=== PATIENT | male | born 1960 | race Caucasian/White ===

== ENCOUNTER 2023-10-19 10:24 | Outpatient (AMB) | payer MEDICARE, BC, SELFPAY ==
--- NOTE | 2023-10-19 09:47 | A.OFFPC_ITS ---
Vital Signs 10/19/23 10:30 Height 5 ft 6.5 in Weight 240 lb BMI 38.2 BP 136/62 Blood Pressure Location Lt brachial Position Sitting Respiration 12 Pulse 87 Pulse Source Pulse Oximeter Pulse Oximetry (%) 95 Oxygen Delivery Method Room Air Intake Visit Reasons: Est Care/ [facility] Discharge Intake Note: Patient is here to establish care- moving from [facility] to [facility]. Patient notes he would like provider to know he was in the hospital for sepsis, Monday-patient urinated and it appeared to be blood- with what looked like clots, Monday- nothing, today when urinating patient reports less amount of blood and clotting. Patients spouse reports while in the hospital patient had abnormal EKG. Patients spouse also notes patient is increasingly forgetful. Patient reports while bending down he feels right sided chest pain with what feels like stitches trying to rip apart. Patient is taking a multivitamin, vitamin e- 400mg, vitamin d3 without calcium, Breo, clobetasol- 0.05% QD Polymerization Helper Required: No Accompanied by: Spouse Allergies No Known Allergies Allergy (Verified 10/19/23 10:39) Medication List - Last Reconciled 10/19/23 by Sasha Hawkins MD aspirin 81 mg PO DAILY atorvastatin 80 mg PO DAILY baclofen 5 mg PO TID betamethasone dipropionate 0.05% 1 appl topical BID PRN dulaglutide (Trulicity) mg subcut esomeprazole magnesium 40 mg PO BID dmitswdxtyu-ijholrliv-vdphvzap 100-62.5-25 mcg (Trelegy Ellipta) 1 ea inhalation DAILY folic acid PO gabapentin 300 mg PO TID glipizide ER 10 mg PO DAILY isosorbide mononitrate ER 30 mg PO DAILY lisinopril 40 mg PO DAILY methotrexate sodium mg PO metoprolol succinate ER 100 mg PO DAILY pioglitazone 45 mg PO DAILY prednisone mg PO sumatriptan succinate 100 mg PO DAILY tamsulosin 0.4 mg PO DAILY zolpidem 10 mg PO BEDTIME PRN Tobacco use date assessed: 10/19/23 Fall risk assessment: 1 Fall in past year Last assessed Fall Risk: 10/19/23 Dental Screening Dental Screen Date: 10/19/23 Did you have a dental visit in the last 12 months?: No Did you have a dental problem in the last 6 months where you did not have access to dental care?: No Was dental information given to patient?: Patient has dentist HPI HPI Comments History of Present Illness Details 62 year old male with a past medical his tory of sarcoidosis, ÓSCAR, COPD, CAD, prostate cancer and diabetes presenting for hospital follow up. Transfer from [facility] Hospitalized October 01- for sepsis secondary to UTI. He was treated with 3 day of IV abx and completed 4 additional days at home. He had recurrent gross hematuria 2 days ago and some speckling of blood yesterday. Denies fevers, dysuria CV: Follows with cardiology. History of abnormal nuclear stress-ST changes no meeting classic ischemic criteria but small reversible perfusion defect on nuclear. Performed for intermittent chest pain.Normal echo. Has held off on catheterization Msk: Chronic low back pain. Currently on tramadol and baclofen. Had controlled agreement. Gabapentin caused drowsiness. Has had PT in past and couldn't tolerate. Xray with mild arthritic changes, disc height loss, right AVN-hip. Present on MRI pelvis since 2019. Walks with cane. Had MRI Migraines 5-6/month. Last a few hours. Intermittent FMLA Diabetes: Controlled. On actos, trulicity and glipizide. Follows with optho. Pulmonary: Follows with [facility]. Moderate to severe COPD. Sarcoidosis treated with prednisone and MTX with good response. ÓSCAR on CPAP. Prostate Cancer: Azeem Post. On active surveillance. PSA stable. MRI last year Insomnia: On zolpidem. Preventive December 27, 2021-colonoscopy @ [facility]. [facility] Medical History (Updated 10/19/23 @ 11:48 by Sasha Hawkins MD) Insomnia Type 2 diabetes mellitus Sleep apnea Severe obesity Sarcoidosis of lung Rib pain Prostate cancer Pneumothorax, post biopsy Migraine Low back pain Hypertension High cholesterol Dyspnea COPD, severe Claustrophobia Chronic kidney disease, stage 3 Surgical History (Updated 10/19/23 @ 08:33 by Shanice Dutta CMA) History of appendectomy History of right knee surgery History of colonoscopy History of prostate biopsy Family History (Updated 10/19/23 @ 10:48 by Shanice Dutta CMA) Mother Hypertension FHx: uterine cancer Brother Prostate cancer Father Prostate cancer Social History (Updated 10/19/23 @ 10:50 by Shanice Dtuta CMA) Household Members: Spouse Housing: House Are you a primary customer care manager to a significant other at home: No Do you presently have visiting nurse or other home services: No Alcohol intake: former Comment: 1-2 times per week Patient Tobacco Use Status: Former Tobacco user Cigarette Packs Per Day: 1.5 Years Smoked: 10 e-Cigarette/Vaping Use: Never Used Substance Use Type: Amphetamines service: No Current occupational status: employed Current occupation: [employer] Sexual orientation: Straight/Heterosexual Gender identity: Male Cognitive needs: Yes Hearing needs: Yes Vision needs: Yes (wears glasses) Questionnaire PHQ-9 Over the last 2 weeks, how often have you been bothered by any of the following problems? 1. Little interest or pleasure in doing things: not at all 2. Feeling down, depressed, or hopeless: not at all 3. Trouble falling or staying asleep, or sleeping too much: not at all 4. Feeling tired or having little energy: not at all 5. Poor appetite or overeating: not at all 6. Feeling bad about yourself - or that you are a failure or have let yourself or your family down: not at all 7. Trouble concentrating on things, such as reading the newspaper or watching television: not at all 8. Moving or speaking so slowly that other people could have noticed. Or the opposite - being so fidgety or restless that you have been moving around a lot more than usual: not at all 9. Thoughts that you would be better off or of hurting yourself in some way: not at all Total score: 0 Depression Screening Interpretation: Negative Depression Screening Done: Yes 62529 - PHQ-9 Billing: Yes Source: Developed by Drs. Aleksander Marlow, Kiki Cooper, Naeem Anderson and colleagues, with an educational emily from [employer]. Thrive Questionnaire Date Thrive assessed: 10/19/23 I am a: Patient What is your living situation today?: I have a steady place to live Within the past 12 months, did the food you bought not last and you didn't have the money to get more?: Never true Within the past 12 months, did you worry whether your food would run out before you got money to buy more?: Never true Do you have trouble paying for medicines?: No Do you have trouble getting transportation to medical appointments?: No Do you have trouble paying your heating and electricity bill?: No Do you have trouble taking care of your child, family member or friend?: No Do you have trouble with day-to-day activities such as bathing, preparing meals, shopping, managing finances, etc.?: No Are you currently unemployed and looking for a job?: No Are you interested in more education?: I choose not to answer this question Please select the resources that you would like help with: None Currently or been in a relationship where the following occur: no concerns reported THRIVE Score: 0 AUDIT C Alcohol Use Questionnaire (AUDIT-C) 1. How often do you have a drink containing alcohol?: Never 3. How often do you have six or more drinks on one occasion?: Never Total Score: 0 BARRON-7 AMB Questionnaire BARRON-7 Date BARRON - 7 assessed: 10/19/23 Feeling nervous, anxious, or on edge: 0 = Not at all Not being able to stop or control worryin = Not at all Worrying too much about different things: 0 = Not at all Trouble relaxin = Not at all Being so restless that it is hard to sit still: 0 = Not at all Becoming easily annoyed or irritable: 0 = Not at all Feeling afraid as if something awful might happen: 0 = Not at all Total BARRON-7 score (0-4 normal; 5-9 mild; 10-14 moderate; 15-21 severe): 0 Source: Developed by Drs. Aleksander Marlow, Kiki Cooper, Naeem Anderson and colleagues, with an educational emily from [employer]. BARRON-7 Assessment Billing BARRON-7 Assessment Tool: BARRON-7 Assessment 82248 Review of Systems Const Details: ROS CONSTITUTIONAL: Denies weight loss, fever and chills. HEENT: Denies changes in vision and hearing. RESPIRATORY: Denies SOB and cough. CV: Denies palpitations and CP GI: Denies abdominal pain, nausea, vomiting and diarrhea. : Denies dysuria and urinary frequency. MSK: Denies myalgia and joint pain. SKIN: Denies rash and pruritus. NEUROLOGICAL: Denies headache and syncope. PSYCHIATRIC: Denies recent changes in mood. Denies anxiety and depression. Physical exam (Primary Care) Vital Signs: Last Vital Signs Pulse 87 10/19/23 10:30 Resp 12 10/19/23 10:30 BP 136/62 10/19/23 10:30 Pulse Ox 95 10/19/23 10:30 Oxygen Delivery Method Room Air 10/19/23 10:30 BMI result Body Mass Index 38.2 Tobacco/Smoking Status: Tobacco use Status Tobacco use date assessed 10/19/23 10/19/23 10:52 Patient Tobacco Use Status Former Tobacco user 10/19/23 10:50 e-Cigarette/Vaping Use Never Used 10/19/23 10:50 PHQ-9: PHQ-9 Score PHQ-9: Total score 0 10/19/23 11:50 Depression Screening Interpretation: Negative Thrive Assessment: Date of Thrive Assessment Date Thrive assessed 10/19/23 10/19/23 10:52 Currently or been in a relationship where the following occur: no concerns reported Const Other: PHYSICAL EXAM: GENERAL: Alert and oriented x 3. No acute distress. Well-nourished. EYES: EOMI. Anicteric. HENT: Moist mucous membranes. No scleral icterus. No cervical lymphadenopathy. LUNGS: Clear to auscultation bilaterally. No accessory muscle use. CARDIOVASCULAR: Regular rate and rhythm. No murmur. No JVD. ABDOMEN: Soft, non-tender and non-distended. No palpable masses. EXTREMITIES: No edema. Non-tender. SKIN: No rashes or lesions. Warm. NEUROLOGIC: No focal neurological deficits. CN II-XII grossly intact, but not individually tested. PSYCHIATRIC: Cooperative. Appropriate mood and affect. Assessment and Plan Assessment & Plan (1) Hospital discharge follow-up: Code(s): Z09 - Encounter for follow-up examination after completed treatment for conditions other than malignant neoplasm Plan: patient seen for hospital follow up Hospitalization reviewed. medications reconciled Continues to have some gross hematuria-has follow up scheduled with urology next week. cytology, ua and ucx ordered (2) Type 2 diabetes mellitus: Comment: well controlled, overdue for labs. labs ordered. medications refilled. Code(s): E11.9 - Type 2 diabetes mellitus without complications Qualifiers: Chronic kidney disease stage: stage 3 (moderate) Chronic kidney disease stage 3 subtype: unspecified whether 3a or 3b Diabetes mellitus complication detail: with chronic kidney disease Diabetes mellitus complication status: with kidney complications Diabetes mellitus predatory animal exterminator insulin use: without [place] [facility] use Qualified Code(s): E11.22 - Type 2 diabetes mellitus with diabetic chronic kidney disease; N18.30 - Chronic kidney disease, stage 3 unspecified (3) Type 2 diabetes mellitus: Comment: well controlled, overdue for labs. labs ordered. medications refilled. Code(s): E11.9 - Type 2 diabetes mellitus without complications Qualifiers: Chronic kidney disease stage: stage 3 (moderate) Chronic kidney disease stage 3 subtype: unspecified whether 3a or 3b Diabetes mellitus complication detail: with chronic kidney disease Diabetes mellitus complication status: with kidney complications Diabetes mellitus [place] [facility] insulin use: without [place] use Qualified Code(s): E11.22 - Type 2 diabetes mellitus with diabetic chronic kidney disease; N18.30 - Chronic kidney disease, stage 3 unspecified (4) Chronic kidney disease, stage 3: Code(s): N18.30 - Chronic kidney disease, stage 3 unspecified Qualifiers: Chronic kidney disease stage 3 subtype: unspecified whether 3a or 3b Q ualified Code(s): N18.30 - Chronic kidney disease, stage 3 unspecified (5) COPD, severe: Comment: continue pulmonary follow up. No active exacerbation Code(s): J44.9 - Chronic obstructive pulmonary disease, unspecified (6) Prostate cancer: Comment: active surveillance. psa has been stable. follow up scheduled Code(s): C61 - Malignant neoplasm of prostate (7) Sarcoidosis of lung: Code(s): D86.0 - Sarcoidosis of lung Orders: Orders AMB Urinalysis Auto Microscop. Today R31.9 - Hematuria, unspecified Urine Cytology Today R31.9 - Hematuria, unspecified Complete Blood Count Auto Diff Today E11.9 - Type 2 diabetes mellitus without complications Comprehensive Met. Panel Today E11.9 - Type 2 diabetes mellitus without complications Hemoglobin A1c Today E11.9 - Type 2 diabetes mellitus without complications Urine Culture Today R31.9 - Hematuria, unspecified Medications: New aspirin 81 mg PO DAILY 90 tabs 3RF atorvastatin 80 mg PO DAILY 90 tabs 3RF baclofen 5 mg PO TID 90 tabs 3RF rpefvbnsyeo-gmnxkunvh-dsbnwxzl 100-62.5-25 mcg (Trelegy Ellipta) 1 ea inhalation DAILY 3 ea 3RF gabapentin 300 mg PO TID 90 days 270 caps 3RF glipizide ER 10 mg PO DAILY 90 days 90 tabs 3RF isosorbide mononitrate ER 30 mg PO DAILY 90 days 90 tabs 3RF metoprolol succinate ER 100 mg PO DAILY 90 days 90 tabs 3RF pioglitazone 45 mg PO DAILY 90 days 90 tabs 3RF sumatriptan succinate 100 mg PO DAILY 90 days 30 tabs 3RF betamethasone dipropionate 0.05% 1 appl topical BID 90 days PRN 45 grams 3RF rash dulaglutide (Trulicity) 1.5 mg (0.25 mL) subcut QWEEK 12 weeks 3 mL 3RF esomeprazole magnesium 40 mg PO BID 90 caps 3RF folic acid 1 mg PO DAILY 90 days 90 tabs 3RF lisinopril 40 mg PO DAILY 90 days 90 tabs 3RF methotrexate sodium 5 mg (2 x 2.5 mg) PO QWEEK 12 weeks 24 tabs 3RF prednisone 10 mg PO Q OTHER DAY 90 days 45 tabs 3RF tamsulosin 0.4 mg PO DAILY 90 days 90 caps 3RF zolpidem 10 mg PO BEDTIME 30 days PRN 30 tabs 0RF insomnia Review Flu Vaccine not done: patient reason Coding Level of Care Code Est Pt Level 5 (13512) Diagnoses Hospital discharge follow-up Z09 Type 2 diabetes mellitus with stage 3 chronic kidney disease, without long-term current use of insulin, unspecified whether stage 3a or 3b CKD E11.22; N18.30 Chronic kidney disease stage: stage 3 (moderate) Chronic kidney disease stage 3 subtype: unspecified whether 3a or 3b Diabetes mellitus complication detail: with chronic kidney disease Diabetes mellitus complication status: with kidney complications Diabetes mellitus predatory animal exterminator insulin use: without [place] use Stage 3 chronic kidney disease, unspecified whether stage 3a or 3b CKD N18.30 Chronic kidney disease stage 3 subtype: unspecified whether 3a or 3b COPD, severe J44.9 Prostate cancer C61 Sarcoidosis of lung D86.0 Additional Codes BARRON-7 Assessment Billing - BARRON-7 Assessment Tool: BARRON-7 Assessment [id number] ( [id number]) Time Spent (min) 46
[2023-10-19 10:30] VITALS: BP 136/62; PULSE 87; RESP 12; O2SAT 95; BMI 38.2
== END 2023-10-19 11:39 | disposition home or self-care (01) ==
PROVIDERS: PCP Internal Medicine; Visit Provider Internal Medicine
DX: E11.22 Type 2 diabetes mellitus with diabetic chronic kidney disease (principal); N18.30 Chronic kidney disease, stage 3 unspecified; J44.9 Chronic obstructive pulmonary disease, unspecified; C61 Malignant neoplasm of prostate; D86.0 Sarcoidosis of lung; Z09 Encounter for follow-up examination after completed treatment for conditions other than malignant neoplasm
CPT/HCPCS: 99215

== ENCOUNTER 2023-10-19 11:40 | Outpatient (REF) | payer MEDICARE, BC, SELFPAY ==
[2023-10-19 14:24] LABS: MANUAL DIFF FLAG NO
[2023-10-19 14:31] LABS: Urine Cytology See Pathology rpt
[2023-10-19 14:31] LABS: Basophils Percent Auto 0.3 % (0-2); Eosinophils Absolute Auto 0.1 X10*3/uL (0.0-0.4); Hematocrit 42.4 % (42.0-52.0); Hemoglobin 13.5 g/dl (14.0-18.0); Imm Gran Abs Auto 0.04 X10*3/uL (0.00-0.03); Imm Gran Pct Auto 0.3 % (0.0-0.4); Lymphocytes Percent Auto 7.2 % (20-40); Mean Corpuscular HGB Conc 31.8 g/dl (31.0-36.0); Mean Corpuscular Volume 87.8 fL (80.0-98.0); Mean Platelet Volume 10.1 fL (9.4-12.4); Monocytes Absolute Auto 1.1 X10*3/uL (0.1-1.2); Monocytes Percent Auto 8.4 % (2-11); Neutrophils Absolute Auto 11.1 x10*3/uL (2.0-8.3); Neutrophils Percent Auto 82.8 % (45-73); Platelet Count 235 X10*3/uL (160-400); Red Blood Count 4.83 X10*6/uL (4.60-5.80); Red Cell Distribution Width 16.2 % (11.0-16.0); White Blood Count 13.4 X10*3/uL (4.8-10.8)
[2023-10-19 15:02] LABS: Alanine Aminotransferase 29 U/L (0-40); Albumin Level 3.7 g/dL (3.5-5.0); Alkaline Phosphatase 93 U/L (39-117); Anion Gap 8 (12-20); Aspartate Amino Transferase 22 U/L (5-37); Bilirubin Total 0.7 mg/dL (0.0-1.0); Blood Urea Nitrogen 18 mg/dL (9-16); Calcium 10.7 mg/dL (8.4-10.2); Carbon Dioxide 34 mmol/L (22-29); Chloride 105 mmol/L (96-108); Estimated Glomerular Filt Rate 53; Glucose Random 97 mg/dL (60-115); Potassium 4.2 mmol/L (3.3-5.1); Sodium 143 mmol/L (135-145); Total Protein 6.6 g/dL (6.5-8.0)
[2023-10-19 16:07] LABS: Estimated Average Glucose 128 mg/dL; Hemoglobin A1c % 6.1 % (<6.0)
== END 2023-10-19 11:41 | disposition home or self-care (01) ==
LOC: HO.WFDLDS 11:40
PROVIDERS: Visit Provider Internal Medicine
DX: R31.9 Hematuria, unspecified (principal); E11.9 Type 2 diabetes mellitus without complications
CPT/HCPCS: 36415; 80053; 83036; 85025; 87086; 87088; 87186; 88112

== ENCOUNTER 2023-10-23 09:08 | Outpatient (REF) | payer MEDICARE, BC, SELFPAY ==
[2023-10-23 12:15] LABS: Prostate Specific Antigen 7.52 ng/mL (<0.05-4.0)
== END 2023-10-23 09:09 | disposition home or self-care (01) ==
LOC: HO.WFDLDS 09:08
PROVIDERS: Visit Provider Urology
DX: Z12.5 Encounter for screening for malignant neoplasm of prostate (principal); C61 Malignant neoplasm of prostate
CPT/HCPCS: 36415; 84153

== ENCOUNTER 2024-01-22 08:49 | Outpatient (AMB) | payer MEDICARE, BC, SELFPAY ==
--- NOTE | 2024-01-22 08:52 | A.OFFPC_ITS ---
Vital Signs 01/22/24 08:54 Height 5 ft 6.5 in Weight 243 lb BMI 38.6 BP 156/60 H Blood Pressure Location Rt brachial Position Sitting Respiration 13 Pulse 76 Pulse Source Pulse Oximeter Pulse Oximetry (%) 99 Oxygen Delivery Method Room Air Intake Visit Reasons: Physical Intake Note: Patient is here for his welcome to Medicare visit which is different from the annual visit. Patient reports he is taking trulicity and recently received a 30 days supply instead of a 90 day supply and would like to receive the 90 day supply. Lobster Fisherman Required: No Accompanied by: Self / Same As Patient Allergies No Known Allergies Allergy (Verified 01/22/24 08:58) Tobacco use date assessed: 10/19/23 Fall risk assessment: No Falls in past year Last assessed Fall Risk: 01/22/24 Dental Screening Dental Screen Date: 10/19/23 HPI HPI Comments History of Present Illness Details 62 year old male with a past medical his tory of sarcoidosis, ÓSCAR, COPD, CAD, prostate cancer and diabetes presenting for hospital follow up. [place] [facility] [place]- for sepsis secondary to UTI. He was treated with 3 day of IV abx and completed 4 additional days at home. He had recurrent gross hematuria 2 days ago and some speckling of blood yesterday. Denies fevers, dysuria CV: Follows with cardiology. History of abnormal nuclear stress-ST changes no meeting classic ischemic criteria but small reversible perfusion defect on nuclear. Performed for intermittent chest pain.Normal echo. Has held off on catheterization Msk: Chronic low back pain. Currently on tramadol and baclofen. Had controlled agreement. Gabapentin caused drowsiness. Has had PT in past and couldn't tolerate. Xray with mild arthritic changes, disc height loss, right AVN-hip. Present on MRI pelvis since 2019. Walks with cane. Had MRI Migraines 5-6/month. Last a few hours. Intermittent FMLA Diabetes: Controlled. On actos, trulicity and glipizide. Follows with optho. Pulmonary: Follows with [facility]. Moderate to severe COPD. Sarcoidosis treated with prednisone and MTX with good response. ÓSCAR on CPAP. Prostate Cancer: Azeem Post. On active surveillance. PSA stable. MRI last year Insomnia: On zolpidem. Preventive December 27, 2021-colonoscopy @ [facility]. [facility] Medical History (Updated 10/19/23 @ 11:48 by Sasha Hawkins MD) Insomnia Type 2 diabetes mellitus Sleep apnea Severe obesity Sarcoidosis of lung Rib pain Prostate cancer Pneumothorax, post biopsy Migraine Low back pain Hypertension High cholesterol Dyspnea COPD, severe Claustrophobia Chronic kidney disease, stage 3 Surgical History (Updated 10/19/23 @ 08:33 by Shanice Dutta CMA) History of appendectomy History of right knee surgery History of colonoscopy History of prostate biopsy Family History (Updated 10/19/23 @ 10:48 by Shanice Dutta CMA) Mother Hypertension FHx: uterine cancer Brother Prostate cancer Father Prostate cancer Social History (Updated 10/19/23 @ 10:50 by Shanice Dutta CMA) Household Members: Spouse Housing: House Are you a primary healthcare economics consultant to a significant other at home: No Do you presently have visiting nurse or other home services: No 75 years or older and lives alone: No Alcohol intake: former Comment: 1-2 times per week Patient Tobacco Use Status: Former Tobacco user Cigarette Packs Per Day: 1.5 Years Smoked: 10 Packs Per Year: 15 e-Cigarette/Vaping Use: Never Used Substance Use Type: Amphetamines service: No Current occupational status: employed Current occupation: [employer] Sexual orientation: Straight/Heterosexual Gender identity: Male Cognitive needs: Yes Hearing needs: Yes Vision needs: Yes (wears glasses) Questionnaire Thrive Questionnaire Date Thrive assessed: 10/19/23 BARRON-7 AMB Questionnaire BARRON-7 Date BARRON - 7 assessed: 10/19/23 Source: Developed by Drs. Aleksander Marlow, Kiki Cooper, Naeem Anderson and colleagues, with an educational emily from [employer]. Physical exam (Primary Care) Vital Signs: Last Vital Signs Pulse 76 01/22/24 08:54 Resp 13 01/22/24 08:54 BP 156/60 H 01/22/24 08:54 Pulse Ox 99 01/22/24 08:54 Oxygen Delivery Method Room Air 01/22/24 08:54 BMI result Body Mass Index 38.6 Tobacco/Smoking Status: Tobacco use Status Tobacco use date assessed 10/19/23 01/22/24 08:54 Patient Tobacco Use Status Former Tobacco user 01/22/24 08:54 e-Cigarette/Vaping Use Never Used 01/22/24 08:54 Thrive Assessment: Date of Thrive Assessment Date Thrive assessed 10/19/23 01/22/24 08:54 Coding
[2024-01-22 08:54] VITALS: BP 156/60; PULSE 76; RESP 13; O2SAT 99; BMI 38.6
--- NOTE | 2024-01-22 09:12 | A.OFFVIS_ITS ---
Intake Vital Signs 01/22/24 08:54 01/22/24 09:13 Height 5 ft 6.5 in Weight 243 lb BMI 38.6 38.6 BP 156/60 H Blood Pressure Location Rt brachial Position Sitting Respiration 13 Pulse 76 Pulse Source Pulse Oximeter Pulse Oximetry (%) 99 Oxygen Delivery Method Room Air Intake Visit Reasons: AWV Allergies No Known Allergies Allergy (Verified 01/22/24 08:58) Medication List - Last Reconciled 01/22/24 by Sasha Hawkins MD aspirin 81 mg PO DAILY atorvastatin 80 mg PO DAILY baclofen 5 mg PO TID betamethasone dipropionate 0.05% 1 appl topical BID PRN 90 days dulaglutide (Trulicity) 1.5 mg (0.25 mL) subcut QWEEK 12 weeks esomeprazole magnesium 40 mg PO BID cdkbvcvkrjy-bgodbupbl-fndimudt 100-62.5-25 mcg (Trelegy Ellipta) 1 ea inhalation DAILY folic acid 1 mg PO DAILY 90 days gabapentin 300 mg PO TID 90 days glipizide ER 10 mg PO DAILY 90 days isosorbide mononitrate ER 30 mg PO DAILY 90 days lisinopril 40 mg PO DAILY 90 days methotrexate sodium 5 mg (2 x 2.5 mg) PO QWEEK 12 weeks metoprolol succinate ER 100 mg PO DAILY 90 days pioglitazone 45 mg PO DAILY 90 days prednisone 10 mg PO Q OTHER DAY 90 days sumatriptan succinate 100 mg PO DAILY 90 days tamsulosin 0.4 mg PO DAILY 90 days zolpidem 10 mg PO BEDTIME PRN 30 days HPI HPI Comments History of Present Illness Details 62 year old male with a past medical his tory of sarcoidosis, ÓSCAR, COPD, CAD, prostate cancer and diabetes presenting MWV CV: Follows with cardiology. History of abnormal nuclear stress-ST changes no meeting classic ischemic criteria but small reversible perfusion defect on nuclear. Performed for intermittent chest pain.Normal echo. Has held off on catheterization Msk: Chronic low back pain. Currently on tramadol and baclofen. Had controlled agreement. Gabapentin caused drowsiness. Has had PT in past and couldn't tolerate. Xray with mild arthritic changes, disc height loss, right AVN-hip. Present on MRI pelvis since 2019. Walks with cane. Had MRI Migraines 5-6/month. Last a few hours. Intermittent FMLA Diabetes: Controlled. On actos, trulicity and glipizide. Follows with optho. Has not had trulicity for ~2 months until just received a one month supply recently Pulmonary: Follows with [facility]. Moderate to severe COPD. Sarcoidosis treated with prednisone and MTX with good response. ÓSCAR on CPAP. Prostate Cancer: [facility] with[facility]. On active surveillance. PSA stable. MRI last year. Hospitalized October 01- for sepsis secondary to UTI. He was treated w ith 3 day of IV abx and completed 4 additional days at home. He had recurrent gross hematuria 2 days ago and some speckling of blood yesterday. Denies fevers, dysuria Insomnia: On zolpidem. Preventive December 27, 2021-colonoscopy @ [facility]. ROS CONSTITUTIONAL: Denies weight loss, fever and chills. HEENT: Denies changes in vision and hearing. RESPIRATORY: Denies SOB and cough. CV: Denies palpitations and CP GI: Denies abdominal pain, nausea, vomiting and diarrhea. : Denies dysuria and urinary frequency. MSK: Denies new myalgia and joint pain. SKIN: Denies rash and pruritus. NEUROLOGICAL: Denies headache PSYCHIATRIC: Denies recent changes in mood. PHYSICAL EXAM: GENERAL: Alert and oriented x 3. NAD EYES: EOMI. Anicteric. HENT: Moist mucous membranes. No scleral icterus. No cervical lymphadenopathy. LUNGS: Clear to auscultation bilaterally. CARDIOVASCULAR: Regular rate and rhythm. No murmur. No JVD. ABDOMEN: Soft, non-tender +bs EXTREMITIES: No edema. Non-tender. SKIN: No rashes or lesions. Warm. NEUROLOGIC: No focal neurological deficits. CN II-XII grossly intact PSYCHIATRIC: Cooperative. Appropriate mood and affect [facility] Medical History (Updated 01/22/24 @ 10:07 by Sasha Hawkins MD) Insomnia Type 2 diabetes mellitus Sleep apnea Severe obesity Sarcoidosis of lung Rib pain Prostate cancer Pneumothorax, post biopsy Migraine Low back pain Hypertension High cholesterol Dyspnea COPD, severe Claustrophobia Chronic kidney disease, stage 3 Surgical History History of appendectomy History of right knee surgery History of colonoscopy History of prostate biopsy Family History Mother Hypertension FHx: uterine cancer Brother Prostate cancer Father Prostate cancer Social History Household Members: Spouse Housing: House Are you a primary foster care worker to a significant other at home: No Do you presently have visiting nurse or other home services: No Alcohol intake: former Comment: 1-2 times per week Patient Tobacco Use Status: Former Tobacco user Cigarette Packs Per Day: 1.5 Years Smoked: 10 e-Cigarette/Vaping Use: Never Used Substance Use Type: Amphetamines service: No Current occupational status: employed Current occupation: [employer] Sexual orientation: Straight/Heterosexual Gender identity: Male Cognitive needs: Yes Hearing needs: Yes Vision needs: Yes (wears glasses) Questionnaire Medicare Wellness Checkup What [age] 65-67 What gender do you identify with?: male During the past 4 weeks, how much have you been bothered by emotional problems such as feeling anxious, depressed, irritable, sad or downhearted, and blue?: not at all During the past 4 weeks, has your physical & emotional health limited your social activities with family, friends, neighbors, or groups?: not at all During the past 4 weeks, how much bodily pain have you generally had?: no pain During the past 4 weeks, was someone available to help you if you needed & wanted help?: yes, as much as I wanted During the past 4 weeks, what was the hardest physical activity you could do for at least 2 minutes?: light Can you get to places out of walking distance without help? (For eg., can you travel alone on buses, taxis or drive your car?): Yes Can you go shopping for groceries or clothes without someone's help?: Yes Can you prepare your own meals?: Yes Can you do your housework without help?: No Because of any health problems, do you need the help of another person with your personal care needs such as eating, bathing, dressing or getting around the house?: No Can you handle your own money without help?: Yes During the past 4 weeks, how would you rate your health in general?: good During the past 4 weeks how have things been going for you?: pretty well Are you having difficulties driving your car?: no Do you always fasten your seat belt when you are in a car?: yes, usually During past 4 weeks, have you been bothered by the following: never: Sexual problems?, Trouble eating well?, Teeth or denture problems? and Problems using the telephone?, sometimes: Tiredness or fatigue? and often: Falling or dizzy when standing up Have you fallen 2 or more times in the past year?: No Are you afraid of falling?: No Are you a smoker?: no During the past 4 weeks, how many drinks of wine, beer, or other alcoholic beverages did you have?: no alcohol at all Do you exercise for about 20 minutes 3 or more times a week?: no, I usually do not exercise this much Have you been given information to help with the following?: no: Hazards in your house that might hurt you? and no: Keeping track of your medications? How often do you have trouble taking medicines the way you have been told to take them?: I always take medicine as prescribed How confident are you that you can control & manage most of your health problems?: somewhat confident What is your race?: White Mini Mental State Exam (MMSE) Orientation What is the (year) (season) (date) (day) (month)?: year, season, date, day and month Where are we (state) (county) (town or city) (hospital) (floor)?: state, county, town or city, hospital/clinic and floor Registration Name of 3 unrelated objects clearly and slowly, then ask patient to repeat all 3 of them. (1st repeat determines score. Make sure they can repeat all three): object 1, object 2 and object 3 Attention & Calculation (CHOOSE ONE) Ask pt to begin with 100 & count backward by 7. Stop after 5 repeats. If pt cannot ask them to spell the word WORLD backward.: 93, 86, 79 and 65 Spell WORLD backwards (DLROW): 5 letters Recall Ask patient to repeat the 3 items from question #3.: object 1, object 2 and object 3 Language Show patient a wristwatch & ask what it is. Repeat for pencil.: watch and pencil Ask the patient to repeat the phrase 'No ifs, ands, or buts' after you.: correct Ask the patient to 'take a piece of paper with their right hand' 'fold paper in half' 'place paper on floor': take paper in right hand, fold paper in half and place paper on floor Print the sentence 'CLOSE YOUR EYES' on a piece. If patient actually closes eyes then score.: followed written direction Give patient a blank piece of paper & ask to write a sentence. Score if it contains a noun & verb.: sentence contains subject and verb Ask patient to copy figure of intersecting pentagons exactly. Score if all 10 angles & 2 intersects are included.: all 10 angles present & 2 are intersected Score Score: 34 Activity of Daily Living Bathing - sponge bath, tub bath or shower: receives no assistance (gets in/out by self, if usual bathing means Dressing - getting clothes from closets & drawers, including inner/outer garments & fasteners.: gets clothes & gets completely dressed without help Toileting - going to the 'toilet room' for urine/bowel elimination & cleaning self/arranging clothes: goes to toilet room, cleans self, arranges clothes without help Transfer: moves in & out of bed and chair without help (may use support object) Continence: controls urination/bowel movements completely by self Feeding: feeds self without help Total Score: 0 Information obtained from: patient Using telephone: independent Traveling: independent Shopping: independent Preparing meals: independent Housework: independent Taking medicine: independent Managing money: independent Physical Exam Vital Signs: Last Vital Signs Pulse 76 01/22/24 08:54 Resp 13 01/22/24 08:54 BP 156/60 H 01/22/24 08:54 Pulse Ox 99 01/22/24 08:54 Oxygen Delivery Method Room Air 01/22/24 08:54 BMI result Body Mass Index 38.6 Assessment & Plan Assessment & Plan (1) Medicare annual wellness visit, subsequent: Code(s): Z00.00 - Encounter for general adult medical examination without abnormal findings Plan: HRA reviewed. No problems identified (2) Leg cramps: Code(s): R25.2 - Cramp and spasm Plan: check labs (3) Type 2 diabetes mellitus: Comment: well controlled, overdue for labs. labs ordered. has been out of trulicity due to shortage Code(s): E11.9 - Type 2 diabetes mellitus without complications Qualifiers: Diabetes mellitus shelter insulin use: without shelter use Diabetes mellitus complication status: with kidney complications Diabetes mellitus complication detail: with chronic kidney disease Chronic kidney disease stage: stage 3 (moderate) Chronic kidney disease stage 3 subtype: unspecified whether 3a or 3b Qualified Code(s): E11.22 - Type 2 diabetes mellitus with diabetic chronic kidney disease; N18.30 - Chronic kidney disease, stage 3 unspecified (4) Sarcoidosis of lung: Code(s): D86.0 - Sarcoidosis of lung Plan: Chronic exertional dyspnea. Follws with pulm and cardiology (5) Prostate cancer: Comment: active surveillance. psa has been stable. follow up scheduled Code(s): C61 - Malignant neoplasm of prostate Plan: Continue follow up with urolgoy (6) COPD, severe: Comment: continue pulmonary follow up. No active exacerbation Code(s): J44.9 - Chronic obstructive pulmonary disease, unspecified Plan: continue pulm follow up (7) Chronic kidney disease, stage 3: Code(s): N18.30 - Chronic kidney disease, stage 3 unspecified Qualifiers: Chronic kidney disease stage 3 subtype: unspecified whether 3a or 3b Qualified Code(s): N18.30 - Chronic kidney disease, stage 3 unspecified Plan: stable Plan see above Return in 3 months for DM follow up Orders: Orders IRON PROFILE Today E11.22 - Type 2 diabetes mellitus with diabetic chronic kidney disease, N18.30 - Chronic kidney disease, stage 3 unspecified, R25.2 - Cramp and spasm Comprehensive Met. Panel Today E11.22 - Type 2 diabetes mellitus with diabetic chronic kidney disease, N18.30 - Chronic kidney disease, stage 3 unspecified, R25.2 - Cramp and spasm Hemoglobin A1c Today E11.22 - Type 2 diabetes mellitus with diabetic chronic kidney disease, N18.30 - Chronic kidney disease, stage 3 unspecified, R25.2 - Cramp and spasm Magnesium Today E11.22 - Type 2 diabetes mellitus with diabetic chronic kidney disease, N18.30 - Chronic kidney disease, stage 3 unspecified, R25.2 - Cramp and spasm Coding Level of Care Code Medicare Subsequent (G0439) Diagnoses Medicare annual wellness visit, subsequent Z00.00 Leg cramps R25.2 Type 2 diabetes mellitus with stage 3 chronic kidney disease, without long-term current use of insulin, unspecified whether stage 3a or 3b CKD E11.22; N18.30 Diabetes mellitus exterminator helper insulin use: without exterminator helper use Diabetes mellitus complication status: with kidney complications Diabetes mellitus complication detail: with chronic kidney disease Chronic kidney disease stage: stage 3 (moderate) Chronic kidney disease stage 3 subtype: unspecified whether 3a or 3b Sarcoidosis of lung D86.0 Prostate cancer C61 COPD, severe J44.9 Stage 3 chronic kidney disease, unspecified whether stage 3a or 3b CKD N18.30 Chronic kidney disease stage 3 subtype: unspecified whether 3a or 3b Comment modifier 25
[2024-01-22 09:13] VITALS: BMI 38.6
== END 2024-01-22 09:38 | disposition home or self-care (01) ==
PROVIDERS: PCP Internal Medicine; Visit Provider Internal Medicine
DX: E11.22 Type 2 diabetes mellitus with diabetic chronic kidney disease (principal); N18.30 Chronic kidney disease, stage 3 unspecified; D86.0 Sarcoidosis of lung; C61 Malignant neoplasm of prostate; J44.9 Chronic obstructive pulmonary disease, unspecified; R25.2 Cramp and spasm
CPT/HCPCS: 99214

== ENCOUNTER 2024-01-22 09:42 | Outpatient (REF) | payer MEDICARE, BC, SELFPAY ==
[2024-01-22 11:33] LABS: Estimated Average Glucose 131 mg/dL; Hemoglobin A1c % 6.2 % (<6.0)
[2024-01-22 11:43] LABS: Alanine Aminotransferase 27 U/L (0-40); Albumin Level 3.9 g/dL (3.5-5.0); Alkaline Phosphatase 87 U/L (39-117); Anion Gap 9 (12-20); Aspartate Amino Transferase 26 U/L (5-37); Bilirubin Total 0.6 mg/dL (0.0-1.0); Blood Urea Nitrogen 24 mg/dL (9-16); Calcium 10.5 mg/dL (8.4-10.2); Carbon Dioxide 30 mmol/L (22-29); Chloride 110 mmol/L (96-108); Estimated Glomerular Filt Rate 52; Glucose Random 74 mg/dL (60-115); Iron 61 mcg/dL (45-160); Magnesium 2.2 mg/dL (1.6-2.6); Percent Iron Saturation 20 % (15-50); Potassium 4.2 mmol/L (3.3-5.1); Sodium 145 mmol/L (135-145); Total Iron Binding Capacity 302 mcg/dL (228-428); Total Protein 6.7 g/dL (6.5-8.0); Unsaturated Iron Binding 241 ug/dL
== END 2024-01-22 09:43 | disposition home or self-care (01) ==
LOC: HO.WFDLDS 09:42
PROVIDERS: Visit Provider Internal Medicine
DX: E11.22 Type 2 diabetes mellitus with diabetic chronic kidney disease (principal); N18.30 Chronic kidney disease, stage 3 unspecified; R25.2 Cramp and spasm
CPT/HCPCS: 36415; 80053; 83036; 83540; 83735

== ENCOUNTER 2024-04-29 09:51 | Outpatient (AMB) | payer MEDICARE, BC, SELFPAY ==
--- NOTE | 2024-04-29 10:16 | A.OFFPC_ITS ---
Vital Signs 04/29/24 10:17 Height 5 ft 6.5 in Weight 240 lb 8 oz BMI 38.2 BP 136/50 L Blood Pressure Location Rt brachial Position Sitting Pulse 56 Pulse Source Pulse Oximeter Temp 98.1 F Temp Source Oral Pulse Oximetry (%) 99 Oxygen Delivery Method Room Air Intake Visit Reasons: follow up Intake Note: Follow up. Cough, congestion, runny nose. Sxs since last Monday. took 3 covid test last week, all negative. Gas Turbine Mechanic Required: No Allergies No Known Allergies Allergy (Verified 04/29/24 10:17) Tobacco use date assessed: 10/19/23 Dental Screening Dental Screen Date: 10/19/23 HPI HPI Comments History of Present Illness Details 64 year old male with a past medical his tory of sarcoidosis, ÓSCAR, COPD, CAD, prostate cancer and diabetes presenting MWV CV: Follows with cardiology. History of abnormal nuclear stress-ST changes no meeting classic ischemic criteria but small reversible perfusion defect on nuclear. Performed for intermittent chest pain.Normal echo. Has held off on catheterization Msk: Chronic low back pain. Currently on tramadol and baclofen. Had controlled agreement. Gabapentin caused drowsiness. Has had PT in past and couldn't tolerate. Xray with mild arthritic changes, disc height loss, right AVN-hip. Present on MRI pelvis since 2019. Walks with cane. Had MRI Migraines 5-6/month. Last a few hours. Intermittent FMLA Diabetes: Controlled. On actos, trulicity and glipizide. Follows with optho. Has not had trulicity for ~2 months until just received a one month supply recently Pulmonary: Follows with [facility]. Moderate to severe COPD. Sarcoidosis treated with prednisone and MTX with good response. ÓSCAR on CPAP. Prostate Cancer: Azeem Post. On active surveillance. PSA stable. MRI last year. Hospitalized October 01- for sepsis secondary to UTI. He was treated with 3 day of IV abx and completed 4 additional days at home. He had recurrent gross hematuria 2 days ago and some speckling of blood yesterday. Denies fevers, dysuria Insomnia: On zolpidem. Preventive December 27, 2021-colonoscopy @ [facility]. ROS CONSTITUTIONAL: Denies weight loss, fever and chills. HEENT: Denies changes in vision and hearing. RESPIRATORY: Denies SOB and cough. CV: Denies palpitations and CP GI: Denies abdominal pain, nausea, vomiting and diarrhea. : Denies dysuria and urinary frequency. MSK: Denies new myalgia and joint pain. SKIN: Denies rash and pruritus. NEUROLOGICAL: Denies headache PSYCHIATRIC: Denies recent changes in mood. PHYSICAL EXAM: GENERAL: Alert and oriented x 3. NAD EYES: EOMI. Anicteric. HENT: Moist mucous membranes. No scleral icterus. No cervical lymphadenopathy. LUNGS: Clear to auscultation bilaterally. CARDIOVASCULAR: Regular rate and rhythm. No murmur. No JVD. ABDOMEN: Soft, non-tender +bs EXTREMITIES: No edema. Non-tender. SKIN: No rashes or lesions. Warm. NEUROLOGIC: No focal neurological deficits. CN II-XII grossly intact PSYCHIATRIC: Cooperative. Appropriate mood and affect [facility] Medical History (Updated 05/10/24 @ 23:45 by Sasha Hawkins MD) Insomnia Type 2 diabetes mellitus Sleep apnea Severe obesity Sarcoidosis of lung Rib pain Prostate cancer Pneumothorax, post biopsy Migraine Low back pain Hypertension High cholesterol Dyspnea COPD, severe Claustrophobia Chronic kidney disease, stage 3 Surgical History History of appendectomy History of right knee surgery History of colonoscopy History of prostate biopsy Family History Mother Hypertension FHx: uterine cancer Brother Prostate cancer Father Prostate cancer Social History Household Members: Spouse Housing: House Are you a primary point of care technician to a significant other at home: No Do you presently have visiting nurse or other home services: No Alcohol intake: former Comment: 1-2 times per week Patient Tobacco Use Status: Former Tobacco user Cigarette Packs Per Day: 1.5 Years Smoked: 10 e-Cigarette/Vaping Use: Never Used Substance Use Type: Amphetamines service: No Current occupational status: employed Current occupation: [employer] Sexual orientation: Straight/Heterosexual Gender identity: Male Cognitive needs: Yes Hearing needs: Yes Vision needs: Yes (wears glasses) Questionnaire PHQ-9 Over the last 2 weeks, how often have you been bothered by any of the following problems? 1. Little interest or pleasure in doing things: not at all 2. Feeling down, depressed, or hopeless: not at all 3. Trouble falling or staying asleep, or sleeping too much: not at all 4. Feeling tired or having little energy: not at all 5. Poor appetite or overeating: not at all 6. Feeling bad about yourself - or that you are a failure or have let yourself or your family down: not at all 7. Trouble concentrating on things, such as reading the newspaper or watching television: not at all 8. Moving or speaking so slowly that other people could have noticed. Or the opposite - being so fidgety or restless that you have been moving around a lot more than usual: not at all 9. Thoughts that you would be better off or of hurting yourself in some way: not at all Total score: 0 Source: Developed by Drs. Aleksander Marlow, Kiki Cooper, Naeem Anderson and colleagues, with an educational emily from [employer]. Thrive Questionnaire Date Thrive assessed: 04/23/24 I am a: Patient What is your living situation today?: I have a steady place to live Within the past 12 months, did the food you bought not last and you didn't have the money to get more?: I choose not to answer this question Within the past 12 months, did you worry whether your food would run out before you got money to buy more?: I choose not to answer this question Do you have trouble paying for medicines?: I choose not to answer this question Do you have trouble getting transportation to medical appointments?: I choose not to answer this question Do you have trouble paying your heating and electricity bill?: I choose not to answer this question Do you have trouble taking care of your child, family member or friend?: I choose not to answer this question Do you have trouble with day-to-day activities such as bathing, preparing meals, shopping, managing finances, etc.?: I choose not to answer this question Are you currently unemployed and looking for a job?: I choose not to answer this question Are you interested in more education?: I choose not to answer this question Please select the resources that you would like help with: None Currently or been in a relationship where the following occur: No concerns reported THRIVE Score: 0 BARRON-7 AMB Questionnaire BARRON-7 Date BARRON - 7 assessed: 10/19/23 Source: Developed by DrsBrittni Marlow, Kiki Cooper, Naeem Anderson and colleagues, with an educational emily from [employer]. Physical exam (Primary Care) Vital Signs: Last Vital Signs Temp 98.1 F 04/29/24 10:17 Pulse 56 04/29/24 10:17 BP 136/50 L 04/29/24 10:17 Pulse Ox 99 04/29/24 10:17 Oxygen Delivery Method Room Air 04/29/24 10:17 BMI result Body Mass Index 38.2 Tobacco/Smoking Status: Tobacco use Status Tobacco use date assessed 10/19/23 04/29/24 10:20 Patient Tobacco Use Status Former Tobacco user 04/29/24 10:20 e-Cigarette/Vaping Use Never Used 04/29/24 10:20 PHQ-9: PHQ-9 Score PHQ-9: Total score 0 05/10/24 23:47 Thrive Assessment: Date of Thrive Assessment Date Thrive assessed 04/23/24 04/29/24 10:20 Currently or been in a relationship where the following occur: No concerns reported Coding Level of Care Code Est Pt Level 4 (91375) Diagnoses Type 2 diabetes mellitus with stage 3 chronic kidney disease, without long-term current use of insulin, unspecified whether stage 3a or 3b CKD E11.22; N18.30 Chronic kidney disease stage: stage 3 (moderate) Chronic kidney disease stage 3 subtype: unspecified whether 3a or 3b Diabetes mellitus complication detail: with chronic kidney disease Diabetes mellitus complication status: with kidney complications Diabetes mellitus ferry terminal agent insulin use: without ferry terminal agent use Stage 3 chronic kidney disease, unspecified whether stage 3a or 3b CKD N18.30 Chronic kidney disease stage 3 subtype: unspecified whether 3a or 3b Prostate cancer C61 COPD, severe J44.9 Assessment & Plan Assessment & Plan (1) Type 2 diabetes mellitus: Code(s): E11.9 - Type 2 diabetes mellitus without complications Category: Medical Qualifiers: Chronic kidney disease stage: stage 3 (moderate) Chronic kidney disease stage 3 subtype: unspecified whether 3a or 3b Diabetes mellitus complication detail: with chronic kidney disease Diabetes mellitus complication status: with kidney complications Diabetes mellitus ferry terminal agent insulin use: without ferry terminal agent use Qualified Code(s): E11.22 - Type 2 diabetes mellitus with diabetic chronic kidney disease; N18.30 - Chronic kidney disease, stage 3 unspecified Plan: stable on current medications. Labs ordered today (2) Chronic kidney disease, stage 3: Code(s): N18.30 - Chronic kidney disease, stage 3 unspecified Category: Medical Qualifiers: Chronic kidney disease stage 3 subtype: unspecified whether 3a or 3b Qualified Code(s): N18.30 - Chronic kidney disease, stage 3 unspecified Plan: stable (3) Prostate cancer: Comment: active surveillance. psa has been stable. follow up scheduled Code(s): C61 - Malignant neoplasm of prostate Category: Medical Plan: stable. continue urologic follow up (4) COPD, severe: Code(s): J44.9 - Chronic obstructive pulmonary disease, unspecified Category: Medical Plan: Following with pulmonary. current exacerbation.doxy sent Orders: Orders Hemoglobin A1c 04/29/24 N18.30 - Chronic kidney disease, stage 3 unspecified, E11.22 - Type 2 diabetes mellitus with diabetic chronic kidney disease, D72.829 - Elevated white blood cell count, unspecified Complete Blood Count Auto Diff 04/29/24 N18.30 - Chronic kidney disease, stage 3 unspecified, E11.22 - Type 2 diabetes mellitus with diabetic chronic kidney disease, D72.829 - Elevated white blood cell count, unspecified Pathologist Review - CBC 04/29/24 N18.30 - Chronic kidney disease, stage 3 unspecified, E11.22 - Type 2 diabetes mellitus with diabetic chronic kidney disease, D72.829 - Elevated white blood cell count, unspecified Medications: New prednisone Take 3 tab oral once daily for 2 days the take 2 tab oral once daily for 2 days then take 1 tab oral once daily for 2 days then return to regular prednisone dosing. 12 tabs 0RF 6 days doxycycline monohydrate 100 mg PO BID 14 tabs 0RF 7 days
[2024-04-29 10:17] VITALS: BP 136/50; PULSE 56; TEMP 36.7; O2SAT 99; BMI 38.2
== END 2024-04-29 11:05 | disposition home or self-care (01) ==
PROVIDERS: PCP Internal Medicine; Visit Provider Internal Medicine
DX: E11.22 Type 2 diabetes mellitus with diabetic chronic kidney disease (principal); N18.30 Chronic kidney disease, stage 3 unspecified; C61 Malignant neoplasm of prostate; J44.9 Chronic obstructive pulmonary disease, unspecified

== ENCOUNTER 2024-04-29 11:27 | Outpatient (REF) | payer MEDICARE, BC, SELFPAY ==
[2024-04-29 14:27] LABS: MANUAL DIFF FLAG NO
[2024-04-29 14:32] LABS: Basophils Percent Auto 0.4 % (0-2); Eosinophils Absolute Auto 0.2 X10*3/uL (0.0-0.4); Eosinophils Percent Auto 2.8 % (0-4); Hemoglobin 12.5 g/dl (14.0-18.0); Imm Gran Abs Auto 0.06 X10*3/uL (0.00-0.03); Imm Gran Pct Auto 0.8 % (0.0-0.4); Lymphocytes Absolute Auto 0.8 X10*3/uL (1.2-4.9); Lymphocytes Percent Auto 9.6 % (20-40); Mean Corpuscular HGB Conc 32.1 g/dl (31.0-36.0); Mean Corpuscular Volume 90.5 fL (80.0-98.0); Mean Platelet Volume 9.9 fL (9.4-12.4); Monocytes Absolute Auto 0.9 X10*3/uL (0.1-1.2); Neutrophils Absolute Auto 5.9 x10*3/uL (2.0-8.3); Neutrophils Percent Auto 75.4 % (45-73); Platelet Count 202 X10*3/uL (160-400); Red Blood Count 4.31 X10*6/uL (4.60-5.80); Red Cell Distribution Width 15.9 % (11.0-16.0); White Blood Count 7.8 X10*3/uL (4.8-10.8)
[2024-04-29 14:50] LABS: Estimated Average Glucose 123 mg/dL; Hemoglobin A1C 134.2737 umol/L; Hemoglobin A1c % 5.9 % (<6.0); Total Hemoglobin (HGBA1C) 3243.0191 umol/L
== END 2024-04-29 11:28 | disposition home or self-care (01) ==
LOC: HO.WFDLDS 11:27
PROVIDERS: Visit Provider Internal Medicine
DX: N18.30 Chronic kidney disease, stage 3 unspecified (principal); E11.22 Type 2 diabetes mellitus with diabetic chronic kidney disease; D72.829 Elevated white blood cell count, unspecified
CPT/HCPCS: 83036; 85025; 99212

== ENCOUNTER 2024-08-26 08:54 | Outpatient (AMB) | payer MEDICARE, BC, SELFPAY ==
--- NOTE | 2024-08-26 09:06 | A.OFFPC_ITS ---
Vital Signs 08/26/24 09:11 Height 5 ft 6.5 in Weight 242 lb 2 oz BMI 38.5 BP 138/72 Blood Pressure Location Rt brachial Position Sitting Respiration 18 Pulse 65 Pulse Source Pulse Oximeter Pulse Oximetry (%) 99 Oxygen Delivery Method Room Air Intake Visit Reasons: follow up Intake Note: Follow up Project Coordinator Rn Required: No Allergies No Known Allergies Allergy (Verified 08/26/24 09:06) Tobacco use date assessed: 10/19/23 Last assessed Fall Risk: 08/26/24 Dental Screening Dental Screen Date: 10/19/23 HPI HPI Comments History of Present Illness Details 64 year old male with a past medical his tory of sarcoidosis, ÓSCAR, COPD, CAD, prostate cancer and diabetes presenting for follow up CV: Follows with cardiology. History of abnormal nuclear stress-ST changes no meeting classic ischemic criteria but small reversible perfusion defect on nuclear. Performed for intermittent chest pain.Normal echo. Has held off on catheterization Msk: Chronic low back pain. Has tried tramadol and baclofen. On gabapentin- causes drowsiness.. Has had PT in past and couldn't tolerate. Xray with mild arthritic changes, disc height loss, right AVN-hip. Present on MRI pelvis since 2019. Walks with cane. Had MRI. He reports difficulty with balance. Does not feel dizziness/vertigo. Cant stand on one foot. Cant walk heel toe. Migraines 5-6/month. Last a few hours. Intermittent FMLA Diabetes: Controlled. On actos, trulicity and glipizide. Follows with optho. Has not had trulicity for ~2 months until just received a one month supply recently Pulmonary: Moderate to severe COPD. Sarcoidosis treated with prednisone and MTX with good response. ÓSCAR on CPAP. Prostate Cancer: Azeem Pots. On active surveillance. PSA stable. MRI last year. Hospitalized October 01- for sepsis secondary to UTI. He was treated with 3 day of IV abx and completed 4 additional days at home. He had recurrent gross hematuria 2 days ago and some speckling of blood yesterday. Denies fevers, dysuria Insomnia: On zolpidem. Preventive December 27, 2021-colonoscopy @ [facility]. ROS see HPI PHYSICAL EXAM: GENERAL: Alert and oriented x 3. NAD EYES: EOMI. Anicteric. HENT: Moist mucous membranes. No scleral icterus. No cervical lymphadenopathy. LUNGS: Clear to auscultation bilaterally. CARDIOVASCULAR: Regular rate and rhythm. No murmur. No JVD. ABDOMEN: Soft, non-tender +bs EXTREMITIES: No edema. Non-tender. SKIN: No rashes or lesions. Warm. NEUROLOGIC: Unalbe to stand on one foot, cant heel to toe without falling sideways. PSYCHIATRIC: Cooperative. Appropriate mood and affect [facility] Medical History Insomnia Type 2 diabetes mellitus Sleep apnea Severe obesity Sarcoidosis of lung Rib pain Prostate cancer Pneumothorax, post biopsy Migraine Low back pain Hypertension High cholesterol Dyspnea COPD, severe Claustrophobia Chronic kidney disease, stage 3 Surgical History History of appendectomy History of right knee surgery History of colonoscopy History of prostate biopsy Family History Mother Hypertension FHx: uterine cancer Brother Prostate cancer Father Prostate cancer Social History Household Members: Spouse Housing: House Are you a primary specialist wound care to a significant other at home: No Do you presently have visiting nurse or other home services: No Alcohol intake: former Comment: 1-2 times per week Patient Tobacco Use Status: Former Tobacco user Cigarette Packs Per Day: 1.5 Years Smoked: 10 e-Cigarette/Vaping Use: Never Used Substance Use Type: Amphetamines service: No Current occupational status: employed Current occupation: [employer] Sexual orientation: Straight/Heterosexual Gender identity: Male Cognitive needs: Yes Hearing needs: Yes Vision needs: Yes (wears glasses) Questionnaire PHQ-9 Over the last 2 weeks, how often have you been bothered by any of the following problems? 1. Little interest or pleasure in doing things: not at all 2. Feeling down, depressed, or hopeless: not at all 3. Trouble falling or staying asleep, or sleeping too much: not at all 4. Feeling tired or having little energy: not at all 5. Poor appetite or overeating: not at all 6. Feeling bad about yourself - or that you are a failure or have let yourself or your family down: not at all 7. Trouble concentrating on things, such as reading the newspaper or watching television: not at all 8. Moving or speaking so slowly that other people could have noticed. Or the opposite - being so fidgety or restless that you have been moving around a lot more than usual: not at all 9. Thoughts that you would be better off or of hurting yourself in some way: not at all Total score: 0 Depression Screening Interpretation: Negative Depression Screening Done: Yes 35263 - PHQ-9 Billing: Yes Source: Developed by Drs. Aleksander Marlow, Kiki Cooper, Naeem Anderson and colleagues, with an educational emily from [employer]. Thrive Questionnaire Date Thrive assessed: 08/19/24 I am a: Patient What is your living situation today?: I have a steady place to live Within the past 12 months, did the food you bought not last and you didn't have the money to get more?: Never true Within the past 12 months, did you worry whether your food would run out before you got money to buy more?: Never true Do you have trouble paying for medicines?: I choose not to answer this question Do you have trouble getting transportation to medical appointments?: No Do you have trouble paying your heating and electricity bill?: No Do you have trouble taking care of your child, family member or friend?: No Do you have trouble with day-to-day activities such as bathing, preparing meals, shopping, managing finances, etc.?: No Are you currently unemployed and looking for a job?: No Are you interested in more education?: No Please select the resources that you would like help with: Paying for medicine Currently or been in a relationship where the following occur: No concerns reported THRIVE Score: 0 AUDIT C Alcohol Use Questionnaire (AUDIT-C) 1. How often do you have a drink containing alcohol?: Monthly or less 2. How many drinks containing alcohol do you have on a typical day when you are drinking?: 1 or 2 3. How often do you have six or more drinks on one occasion?: Never Total Score: 1 BARRON-7 AMB Questionnaire BARRON-7 Date BARRON - 7 assessed: 10/19/23 Feeling nervous, anxious, or on edge: 0 = Not at all Not being able to stop or control worryin = Not at all Worrying too much about different things: 0 = Not at all Trouble relaxin = Not at all Being so restless that it is hard to sit still: 0 = Not at all Becoming easily annoyed or irritable: 0 = Not at all Feeling afraid as if something awful might happen: 0 = Not at all Total BARRON-7 score (0-4 normal; 5-9 mild; 10-14 moderate; 15-21 severe): 0 Source: Developed by Drs. Aleksander Marlow, Kiki Cooper, Naeem Anderson and colleagues, with an educational emily from [employer]. Physical exam (Primary Care) Vital Signs: Last Vital Signs Pulse 65 08/26/24 09:11 Resp 18 08/26/24 09:11 BP 138/72 08/26/24 09:11 Pulse Ox 99 08/26/24 09:11 Oxygen Delivery Method Room Air 08/26/24 09:11 BMI result Body Mass Index 38.5 Tobacco/Smoking Status: Tobacco use Status Tobacco use date assessed 10/19/23 08/26/24 09:08 Patient Tobacco Use Status Former Tobacco user 08/26/24 09:08 e-Cigarette/Vaping Use Never Used 08/26/24 09:08 PHQ-9: PHQ-9 Score PHQ-9: Total score 0 09/01/24 09:44 Depression Screening Interpretation: Negative Thrive Assessment: Date of Thrive Assessment Date Thrive assessed 08/19/24 08/26/24 09:08 Currently or been in a relationship where the following occur: No concerns reported Coding Level of Care Code Est Pt Level 4 (22133) Complex EM visit Add On G2211 Diagnoses Type 2 diabetes mellitus with stage 3 chronic kidney disease, without long-term current use of insulin, unspecified whether stage 3a or 3b CKD E11.22; N18.30 Chronic kidney disease stage: stage 3 (moderate) Chronic kidney disease stage 3 subtype: unspecified whether 3a or 3b Diabetes mellitus complication detail: with chronic kidney disease Diabetes mellitus complication status: with kidney complications Diabetes mellitus applied exercise physiologist insulin use: without applied exercise physiologist use COPD, severe J44.9 Ataxia R27.0 Additional Codes PHQ-9 - 33166 - PHQ-9 Billing: Yes ([id number]) Assessment & Plan Assessment & Plan (1) Type 2 diabetes mellitus: Code(s): E11.9 - Type 2 diabetes mellitus without complications Category: Medical Qualifiers: Chronic kidney disease stage: stage 3 (moderate) Chronic kidney disease stage 3 subtype: unspecified whether 3a or 3b Diabetes mellitus complication detail: with chronic kidney disease Diabetes mellitus complication status: with kidney complications Diabetes mellitus jail insulin use: without jail use Qualified Code(s): E11.22 - Type 2 diabetes mellitus with diabetic chronic kidney disease; N18.30 - Chronic kidney disease, stage 3 unspecified Plan: Controlled. Labs due. Continue current medications (2) COPD, severe: Code(s): J44.9 - Chronic obstructive pulmonary disease, unspecified Category: Medical Plan: stable on current medications. continue pulm follow up (3) Ataxia: Code(s): R27.0 - Ataxia, unspecified Category: Medical Plan: referral to neurology Orders: Orders Comprehensive Met. Panel 08/26/24 E11.22 - Type 2 diabetes mellitus with diabetic chronic kidney disease, I10 - Essential (primary) hypertension, N18.30 - Chronic kidney disease, stage 3 unspecified Lipid Panel 08/26/24 E11.22 - Type 2 diabetes mellitus with diabetic chronic kidney disease, I10 - Essential (primary) hypertension, N18.30 - Chronic kidney disease, stage 3 unspecified Hemoglobin A1c 08/26/24 E11.22 - Type 2 diabetes mellitus with diabetic chronic kidney disease, I10 - Essential (primary) hypertension, N18.30 - Chronic kidney disease, stage 3 unspecified Referrals Neurology Referral R27.0 - Ataxia, unspecified
[2024-08-26 09:11] VITALS: BP 138/72; PULSE 65; RESP 18; O2SAT 99; BMI 38.5
--- OUTSIDE RECORDS SUMMARY | 2024-08-26 09:24 | XMS_ITS | Clinical Summary ---
Author Organization [facility] Address [address] [facility] [address] [place] [address] Phone Care Team Providers Care Shank Faker Name Role Phone Sasha Hawkins MD Primary Care Provider [phone] Allergies No known active allergies Medications aspirin (ST GUI) 81 MG EC tablet Take 81 mg by mouth 1 (one) time each day Active calcium carbonate (TUMS) 500 MG chewable tablet Chew 1 tablet 1 (one) time each day Active cyclobenzaprine (FLEXERIL) 10 MG tablet Take 10 mg by mouth 3 (three) times a day if needed for muscle spasms Active esomeprazole (NexIUM) [address] capsule Take 40 mg by mouth 1 (one) time each day before breakfast Do not open capsule. Active folic acid (FOLVITE) 1 MG tablet Take 1 mg by mouth 1 (one) time each day Active glipiZIDE (GLUCOTROL) 10 MG tablet Take 10 mg by mouth in the morning and 10 mg in the evening. Take before meals. Active atorvastatin (LIPITOR) 80 MG tablet Take 80 mg by mouth 1 (one) time each day Active lisinopril 40 MG tablet Take 40 mg by mouth 1 (one) time each day Active magnesium oxide-pyridoxin e (BEELITH) 362-20 MG per tablet Take 1 tablet by mouth 1 (one) time each day Active methotrexate 2.5 MG tablet Take 2.5 mg by mouth 3 (three) doses per week. Take doses 12 (twelve) hours apart from each other. Follow directions carefully, and ask to explain any part you do not understand. Take exactly as directed. Active metoprolol succinate XL (TOPROL-XL) 100 MG 24 hr tablet Take 100 mg by mouth 1 (one) time each day Do not crush or chew. Active Multiple Vitamin (multivitamin) capsule Take 1 capsule by mouth 1 (one) time each day Active orphenadrine (NORFLEX) 100 MG 12 hr tablet Take 100 mg by mouth 2 (two) times a day if needed for muscle spasms Do not crush, chew, or split. Active oxyCODONE (OXY-IR) 5 MG immediate release capsule Take 5 mg by mouth every 4 (four) hours if needed for moderate pain Active predniSONE 10 MG (21) tablet therapy pack Take by mouth Act yakelin SUMAtriptan (IMITREX) 100 MG tablet Take 100 mg by mouth 1 (one) time if needed for migraine Active tamsulosin (Flomax) 0.4 MG 24 hr capsule Take 0.4 mg by mouth 1 (one) time each day Active Fluticasone-Ume clidin-Vilant (TRELEGY ELLIPTA IN) Inhale Active Dulaglutide (Trulicity) 1.5 MG/0.5ML solution pen-injector Inject under the skin Active Cholecalciferol (Vitamin D3) 50 MCG (2000 UT) chewable tablet Chew Acti ve ZOLPIDEM TARTRATE ER PO Take 10 mg by mouth at night if needed for sleep Do not crush, chew, or split. Active gabapentin (NEURONTIN) 300 MG capsule Take 300 mg by mouth in the morning and 300 mg in the evening and 300 mg before bedtime. Active alpha tocopherol (VITAMIN E) 400 units capsule Take 400 Units by mouth 1 (one) time each day Active Fluticasone Furoate-Vilante rol (BREO ELLIPTA IN) Inhale Active Active Problems Problem Noted Date Diagnosed Date Stage 3a chronic kidney disease 07/27/2023 Claustrophobia 07/27/2023 Chronic obstructive pulmonary disease 07/27/2023 Dyspnea 07/27/2023 Hypercholesterolemia 07/27/2023 Essential (primary) hypertension 07/27/2023 Prostate cancer care review done 07/27/2023 Sarcoidosis 07/27/2023 Sleep apnea 07/27/2023 Hypertensive chronic kidney disease stage 3 07/04 Encounters Date Type Department Care Team Description 07/11/2024 2:00 PM EST [facility] [address] [address] Rafa Nunes MD Stage 3a chronic kidney disease (HCC) (Primary Dx); Hypertensive chronic kidney disease stage 3 from Last 3 Months Social History Tobacco Use Types Packs/Day Years Used Date Smoking Tobacco: Former Cigarettes Smokeless Tobacco: Never Tobacco Cessation:Counseling Given: No Alcohol Use Standard Drinks/Week Comments Never 0 (1 standard drink = 0.6 oz pur e alcohol) Sex and Gender Information Value Date Recorded Sex Assigned at Not on file Legal Sex Male 4:52 PM EST Gender Identity Not on file Sexual Orientation Not on file Last Filed Vital Signs Vital Sign Reading Time Taken Comments Blood Pressure 130/70 07/11/2024 1:51 PM EST Pulse 84 07/11/2024 1:51 PM EST Temperature - - Respiratory Rate - - Oxygen Saturation 96% 07/11/2024 1:51 PM EST Inhaled Oxygen Concentration - - Weight 106 kg (234 lb) 07/11/2024 1:51 PM EST Height - - Body Mass Index - - Plan of Treatment Upcoming Encounters Date Type Department Care Team (Late st Contact Info) Description 07/17/2025 1:45 PM EST [facility] [address] [place] [phone] Rafa Nunes MD [address] [address] Health Maintenance Due Date Last Done Comments Colorectal Cancer Screening: Annual FOBT 2007 Colorectal Cancer Screening: Colonoscopy 2007 Colorectal Cancer Screening: Sigmoidoscopy 2007 Pneumococcal Vaccine: 65+ Years (4 of 4 - PPSV23 or PCV20) 2023 03/30/2015, 05/18/2011, 04/20/2006 Diabetes: Hemoglobin A1C 07/27/2023 Diabetes: Ophthalmology Exam 07/27/2023 Diabetes: Pedal Pulse Checked 07/27/2023 Diabetes: Sensory Foot Exam 07/27/2023 Diabetes: Visual Foot Exam 07/27/2023 Influenza Vaccine (#1) 2024 Hepatitis B Vaccine Aged Out No longe r eligible based on patient's age to complete this topic Insurance [facility] MEDICARE MEDICARE [facility] Care Teams Shank Faker Relationship Specialty Start Date End Date O'Cavanaugh, Sasha M, MD [facility] [place] [address] PCP - General Internal Medicine 05/02/23
--- OUTSIDE RECORDS SUMMARY | 2024-08-26 09:24 | XMS_ITS | Encounter Summary ---
Author Organization [facility] Address [address] [facility] [address] [place] [address] Phone Care Team Providers Care Transition Mgr Name Role Phone Sasha Hawkins MD Primary Care Provider [phone] Encounter Details Date Type Department Care Team (Late st Contact Info) Description 12/10/2020 Orders Only [facility] [address] [facility] [address] [place] [address] Provider, MD Evette [address] [place] [id number] Social History Tobacco Use Types Packs/Day Years Used Date Smoking Tobacco: Never Assessed Sex and Gender Information Value Date Recorded Sex Assigned at Not on file Legal Sex Male 4:52 PM EST Gender Identity Not on file Sexual Orientation Not on file documented as of this encounter Plan of Treatment Upcoming Encounters Date Type Department Care Team (Late st Contact Info) Description 07/17/2025 1:45 PM EST [facility] Visit [facility] [address] [place] [phone] Rafa Nunes MD [address] [facility] [address] [place] [phone] documented as of this encounter Procedures Procedure Name Priority Date/Time Associated Diagnosis Comments EXT RESULT ENTRY Routine 12/10/2020 documented in this encounter Results * EXT RESULT ENTRY (12/10/2020) us Historical Provider LAB BLOOD ORDERABLES Ghada l Result documented in this encounter Visit Diagnoses Not on filedocumented in this encounter Care Teams Transition Mgr Relationship Specialty Start Date End Date Sasha Hawkins MD [facility] [place] [address] PCP - General Internal Medicine 05/02/23 documented as of this encounter
== END 2024-08-26 09:50 | disposition home or self-care (01) ==
PROVIDERS: PCP Internal Medicine; Visit Provider Internal Medicine
DX: E11.22 Type 2 diabetes mellitus with diabetic chronic kidney disease (principal); N18.30 Chronic kidney disease, stage 3 unspecified; J44.9 Chronic obstructive pulmonary disease, unspecified; R27.0 Ataxia, unspecified

== ENCOUNTER 2024-08-26 10:33 | Outpatient (REF) | payer MEDICARE, BC, SELFPAY ==
--- OUTSIDE RECORDS SUMMARY | 2024-08-26 11:54 | XMS_ITS | Clinical Summary ---
Author Organization [facility] Address [address] [facility] [address] [place] [address] Phone Care Team Providers Care Hvac Manager Name Role Phone Sasha Hawkins MD Primary Care Provider [phone] Allergies No known active allergies Medications aspirin [...] Office Visit [facility] [address] [address] Rafa Nunes MD Stage 3a [...] [facility] [address] [place] [phone] Rafa Nunes MD [address] [address] Health Maintenance Due Date Last [...] patient's age to complete this topic Insurance [facility] MEDICARE MEDICARE [facility] Care Teams Hvac Manager Relationship Specialty Start Date End Date O'Cavanaugh, Sasha M, MD [facility] [place] [address] PCP - General Internal Medicine 05/02/23
--- OUTSIDE RECORDS SUMMARY | 2024-08-26 11:54 | XMS_ITS | Encounter Summary ---
Author Organization [facility] Address [address] [facility] [address] [place] [address] Phone Care Team Providers Care Project Eng Name Role Phone Sasha Hawkins MD Primary Care Provider [phone] Encounter Details Date Type Department Care Team (Late st Contact Info) Description 12/10/2020 Orders Only [facility] [address] [facility] [address] [place] [address] Provider, MD Evette [address] [place] [address] Social History Tobacco Use Types Packs/Day [...] Visit [facility] [address] [place] [phone] Rafa Nunes MD [address] [facility] [address] [place] [phone] documented as of this encounter Procedures Procedure Name Priority Date/Time Associated Diagnosis Comments EXT RESULT ENTRY Routine 12/10/2020 documented in this encounter Results * EXT RESULT ENTRY (12/10/2020) us Historical Provider LAB BLOOD ORDERABLES Ghada l Result documented in this encounter Visit Diagnoses Not on filedocumented in this encounter Care Teams Project Eng Relationship Specialty Start Date End Date Sasha Hawkins MD [facility] [place] [address] PCP - General Internal Medicine 05/02/23 documented as of this encounter
[2024-08-26 15:01] LABS: Estimated Average Glucose 111 mg/dL; Hemoglobin A1c % 5.5 % (<6.0)
[2024-08-26 15:06] LABS: Anion Gap 10 (12-20)
[2024-08-26 15:20] LABS: Alanine Aminotransferase 35 U/L (0-40); Albumin Level 3.6 g/dL (3.5-5.0); Alkaline Phosphatase 94 U/L (39-117); Bilirubin Total 0.6 mg/dL (0.0-1.0); Blood Urea Nitrogen 13 mg/dL (9-16); Calcium 9.9 mg/dL (8.4-10.2); Carbon Dioxide 30 mmol/L (22-29); Chloride 110 mmol/L (96-108); Cholesterol 117 mg/dL (<200); Estimated Glomerular Filt Rate > 60; Glucose Random 86 mg/dL (60-115); HDL Cholesterol 47 mg/dL (>40); LDL Cholesterol Calculated 45 mg/dL (<100); Potassium 4.7 mmol/L (3.3-5.1); Sodium 145 mmol/L (135-145); Total Protein 6.4 g/dL (6.5-8.0); Triglycerides 125 mg/dL (<150)
[2024-08-26 20:47] LABS: Aspartate Amino Transferase 32 U/L (5-37)
== END 2024-08-26 10:34 | disposition home or self-care (01) ==
LOC: HO.WFDLDS 10:33
PROVIDERS: Visit Provider Internal Medicine
DX: E11.22 Type 2 diabetes mellitus with diabetic chronic kidney disease (principal); I12.9 Hypertensive chronic kidney disease with stage 1 through stage 4 chronic kidney disease, or unspecified chronic kidney disease; N18.30 Chronic kidney disease, stage 3 unspecified; J44.9 Chronic obstructive pulmonary disease, unspecified; R27.0 Ataxia, unspecified; Z79.85 Long-term (current) use of injectable non-insulin antidiabetic drugs; D86.0 Sarcoidosis of lung; Z79.51 Long term (current) use of inhaled steroids
CPT/HCPCS: 36415; 80053; 80061; 83036; 96127; 99212

== ENCOUNTER 2024-09-18 14:38 | Outpatient (REF) | payer MEDICARE, BC, SELFPAY ==
[2024-09-18 19:12] LABS: Folate > 20.0 ng/mL (> or = 4.0); Vitamin B12 503 pg/mL (200-900)
== END 2024-09-18 14:39 | disposition home or self-care (01) ==
LOC: HO.HKASLDS 14:38
PROVIDERS: PCP Internal Medicine; Visit Provider Psychiatry & Neurology Neurology
DX: R26.89 Other abnormalities of gait and mobility (principal); R27.0 Ataxia, unspecified
CPT/HCPCS: 36415; 82607; 82746; 99202

== ENCOUNTER 2024-09-18 14:38 | Outpatient (AMB) | payer MEDICARE, BC, SELFPAY ==
--- NOTE | 2024-09-18 14:42 | MHC.OFFVIS ---
Vital Signs 09/18/24 14:43 Height 5 ft 6.5 in Weight 242 lb BMI 38.5 BP 160/70 H Blood Pressure Location Rt brachial Position Sitting Pulse 86 Pulse Source Pulse Oximeter Pulse Oximetry (%) 97 Oxygen Delivery Method Room Air Intake Visit Reasons: INP-Ataxia Intake Note: Patient referred in-house by Sasha Ghosh for Ataxia. Allergies No Known Allergies Allergy (Verified 09/18/24 14:44) HPI Comments Details: 64y/o male comes for evaluation of gait and balance issues. He has h/o lumbar spondylosis, diabetes, prostrate ca and for past 2 months he feels like he is off balance. He has chronic back pain. He denies any radicular pain He denies double vision. He had an episode of dizziness when he took trilogy -2 weeks ago. He denies neck pain.He has numbness , tingling in his feet on and off. no h/o heavy alcohol use. He used work at [employer], drove a fork lift. [facility] Medical History (Updated 09/18/24 @ 15:03 by Mala Calzada MD) Abnormality of gait due to impairment of balance Insomnia Type 2 diabetes mellitus Sleep apnea Severe obesity Sarcoidosis of lung Rib pain Prostate cancer Pneumothorax, post biopsy Migraine Low back pain Hypertension High cholesterol Dyspnea COPD, severe Claustrophobia Chronic kidney disease, stage 3 Surgical History History of appendectomy History of right knee surgery History of colonoscopy History of prostate biopsy Family History Mother Hypertension FHx: uterine cancer Brother Prostate cancer Father Prostate cancer Social History Household Members: Spouse Housing: House Are you a primary human services care specialist to a significant other at home: No Do you presently have visiting nurse or other home services: No 75 years or older and lives alone: No Alcohol intake: former Comment: 1-2 times per week Patient Tobacco Use Status: Former Tobacco user Cigarette Packs Per Day: 1.5 Years Smoked: 10 e-Cigarette/Vaping Use: Never Used Substance Use Type: Amphetamines service: No Current occupational status: employed Current occupation: [employer] Sexual orientation: Straight/Heterosexual Gender identity: Male Cognitive needs: Yes Hearing needs: Yes Vision needs: Yes (wears glasses) Physical Exam Vital Signs: Last Vital Signs Pulse 86 09/18/24 14:43 BP 160/70 H 09/18/24 14:43 Pulse Ox 97 09/18/24 14:43 Oxygen Delivery Method Room Air 09/18/24 14:43 BMI result Body Mass Index 38.5 Const General: cooperative, healthy appearing, comfortable and no acute distress Nutritional Appearance: average body habitus Orientation/consciousness: patient oriented x3 Eyes Pupils: Equal, round and reactive pupils present Neuro Other: normal gait- difficulty with tandem walk General: patient oriented x3, tone normal, moves all extremities and no focal motor deficits Cranial nerves: Yes Facial sensation intact/muscles of mastication intact, Yes Equal, round and reactive pupils present, Yes Bilaterally intact EOM present, Yes Nystagmus not present, Yes Normal facial strength present, Yes Midline tongue present, Yes Symmetric palate elevation present and Yes Ability to bilaterally elevate shoulders present Cognition (Neuro): normal cognition Motor exam (neuro): 5/5 motor strength present throughout and Normal motor muscle tone present throughout Deep tendon reflexes (DTR's): Right triceps reflex intensity grade: 1+, Left triceps reflex intensity grade: 1+, Rt Biceps (C5, C6): 1+, Left biceps reflex intensity grade: 1+, Right brachioradialis reflex intensity grade: 1+, Left brachioradialis reflex intensity grade: 1+, Right patellar reflex intensity grade: 1+ and Left patellar reflex intensity grade: 1+ Coordination: [id number] test normal Assessment & Plan Assessment & Plan (1) Abnormality of gait due to impairment of balance: Comment: ? sensory ataxia, ? lumbar spondylosis Code(s): R26.89 - Other abnormalities of gait and mobility Category: Medical Plan I will evaluate him with MRI brain Check Vit B 12 continue PT Orders: Orders Vitamin B12 and Folate Today R26.89 - Other abnormalities of gait and mobility, R27.0 - Ataxia, unspecified Coding Level of Care Code New Pt Level 4 (25451) Complex EM visit Add On G2211 Diagnoses Abnormality of gait due to impairment of balance R26.89
[2024-09-18 14:43] VITALS: BP 160/70; PULSE 86; O2SAT 97; BMI 38.5
--- OUTSIDE RECORDS SUMMARY | 2024-09-18 16:53 | XMS_ITS | Continuity of Care Document ---
Author Organization [facility] Address [address] [place] [phone] Care Team Providers Care Vehicle Body Sander Name Role Phone Not on Staff, PCP Primary Care Physician Unavail able Encounter [facility] Date(s): 08/12/24 - 09/12/24 [facility] [address] [place] [id number] Attending Physician: Ochoa García MD Admitting Physician: Ochoa García MD Referring Physician: Not on Staff, Referring MD Encounter Type: Pre-OutPatient One Time Allergies, Adverse Reactions, Alerts No Known Allergies Immunizations Given and Recorded Vaccine Date Status Refusal Reason RSV vaccine preF3, recombinant 04/24/23 Recorded SARS-CoV-2(COVID-19)mRNA-LNP vac([id number]) 03/26/23 Recorded influenza virus vaccine, inactivated 03/26/23 Darrell rded influenza virus vaccine, inactivated 03/31/22 Darrell rded influenza virus vaccine, inactivated 04/20/21 Darrell rded influenza virus vaccine, inactivated 04/01/20 Darrell rded influenza virus vaccine, inactivated 04/17/19 Darrell rded influenza virus vaccine, inactivated 03/29/18 Darrell rded influenza virus vaccine, inactivated 04/17/17 Darrell rded influenza virus vaccine, inactivated 03/21/17 Darrell rded influenza virus vaccine, inactivated 04/16/16 Darrell rded influenza virus vaccine, inactivated 03/22/16 Darrell rded influenza virus vaccine, inactivated 03/24/15 Darrell rded influenza virus vaccine, inactivated 03/28/13 Darrell rded influenza virus vaccine, inactivated 06/05/12 Darrell rded influenza virus vaccine, inactivated 1 03/13/12 Gi veda influenza virus vaccine, inactivated 2 03/24/11 Gi veda influenza virus vaccine, inactivated 04/20/10 Darrell rded influenza virus vaccine, inactivated 06/16/09 Darrell rded influenza virus vaccine, inactivated 05/22/08 Darrell rded influenza virus vaccine, inactivated 05/04/07 Darrell rded influenza virus vaccine, inactivated 04/20/06 Darrell rded influenza virus vaccine, inactivated 05/19/05 Darrell rded [id number] bivalent booster vax 03/31/22 Recorded SARS-CoV-2 (COVID-19) mRNA-1273 vaccine 09/29/21 R ecorded SARS-CoV-2 (COVID-19) mRNA-1273 vaccine 07/08/21 R ecorded SARS-CoV-2 (COVID-19) mRNA-1273 vaccine 04/22/21 R ecorded SARS-CoV-2 (COVID-19) mRNA-1273 vaccine 09/30/20 R ecorded SARS-CoV-2 (COVID-19) mRNA-1273 vaccine 09/02/20 R ecorded zoster vaccine, inactivated 05/04/18 Recorded pneumococcal 13-valent vaccine 03/30/15 Recorded pneumococcal 23-valent vaccine 05/18/11 Recorded pneumococcal 23-valent vaccine 04/20/06 Recorded tetanus/diphtheria/pertussis, acel(Tdap) 05/18/11 Recorded tetanus-diphtheria toxoids (Td) 08/28/03 Recorded 1Admin Note: CDC info given to patient 2Admin Note: Given at PCP office today. Dr Torres CDC info given to patient Medications Albuterol (Eqv-ProAir HFA) 90 mcg/inh inhalation aerosol 2 puffs, Inhalation, Every 6 hours, PRN Wheezing/Shortness of Breath, for 90 days, j44.9, # 18 Gm, 3 Refills, Acute 11/17/24 9:02:00 AM EDT, 11/23/23 9:02:00 AM EDT, [facility]/pharmacy #[id number], Partial fill upon patient request if the prescription is for a schedule II opioid drug., 2 puffs Inhalation Every 6 hours,x90 days,PRN:Wheezing/Shortness of Breath,Instr:j44.9, 167, cm, 11/23/23 8:21:00 EDT, Height,109.8, kg, 10/02/23 18:52:00 EDT, Dry Weight Start Date: 11/23/23 Stop Date: 11/17/24 Status: Ordered Quantity: 18.0 Unit: g Repeat number: 4 Aspirin Low Dose 81 mg oral delayed release tablet 1 tablet, By Mouth, Daily, # 90 tablet, 1 Refills, Maintenance, 04/24/23 4:31:00 PM EDT, [id number], 168.85, cm, 04/20/23 13:50:00 EDT, Height Start Date: 04/24/23 Status: Ordered Quantity: 90.0 Unit: tablet Repeat number: 1 atorvastatin 80 mg oral tablet 1 tablet, By Mouth, Daily at bedtime, # 90 tablet, 1 Refills, Maintenance, 07/15/23 7:41:00 AM EST, [facility]/pharmacy #[id number], 168, cm, 05/28/23 12:05:00 EST, Height, 114, kg, 05/28/23 12:05:00 EST, Dry Weight Start Date: 07/15/23 Status: Ordered Quantity: 90.0 Unit: tablet Repeat number: 2 betamethasone topical dipropionate 0.05% cream APPLY TO AFFECTED AREA 2 TIMES A DAY NEEDED FOR RASH Start Date: 01/17/24 Status: Ordered Repeat number: 1 clobetasol 0.05% topical cream Topically, 2 times a day, 0 Refills, Maintenance, 11/23/23 8:26:00 AM EDT, Partial fill upon patientrequest if the prescription is for a schedule II opioid drug. Start Date: 11/23/23 Status: Ordered Repeat number: 1 CPAP Machine See Instructions, # 1 each, Maintenance, AutoCPAP 12 cm H20, use Daily when sleeping DME - [employer], 04/25/24 7:49:00 AM EDT, Supply Start Date: 04/25/24 Status: Ordered Quantity: 1.0 Unit: each Repeat number: 1 cyclobenzaprine 10 mg oral tablet See Instructions, TAKE 1 TO 2 TABLETS BY MOUTH BEFORE BED NEEDED FOR MUSCLE SPASM, # 90 tablet, Refills 3, Tot. Refills 3, Maintenance, 09/07/22 9:07:00 AM EST, Instructions Replace Required Details, Route to Pharmacy Electronically, [facility]/pharmacy #[id number], 168.85, cm, 08/12/22 15:48:00 EST, Height Start Date: 09/07/22 Stop Date: 12/08/22 Status: Ordered Quantity: 90.0 Unit: tablet Repeat number: 4 esomeprazole 40 mg oral enteric coated capsule See Instructions, TAKE 1 CAPSULE BY MOUTH 2 TIMES DAILY (BEFORE MEALS)., # 180 capsule, 3 Refills, Maintenance, 09/05/23 4:20:00 PM EST, [id number], 168, cm, 09/04/23 14:46:00 EST, Height, 114, kg, 05/28/23 12:05:00 EST, Dry Weight Start Date: 09/05/23 Status: Ordered Quantity: 180.0 Unit: capsule Repeat number: 1 folic acid 1 mg oral tablet See Instructions, TAKE 1 TABLET BY MOUTH DAILY,X12 WEEK(S)- EXCEPT MONDAYS, # 72 tablet, Refills 1,Tot. Refills 1, Maintenance, 07/27/23 6:29:00 AM EST, Instructions Replace Required Details, Route to Pharmacy Electronically, [facility]/pharmacy #[id number], 168, cm, 05/28/23 12:05:00 EST, Height, 114, kg, 05/28/23 12:05:00 EST, Dry Weight Start Date: 07/27/23 Status: Ordered Quantity: 72.0 Unit: tablet Repeat number: 2 gabapentin 300 mg oral capsule 1, capsule, By Mouth, 3 times a day, FOR BACK PAIN., # 270 capsule, Refills 3, Tot. Refills 3, Maintenance, 09/25/23 10:05:00 AM EDT, Route to Pharmacy Electronically, [facility]/pharmacy #[id number], 168, cm, 09/25/23 9:25:00 EDT, Height, 114, kg, 05/28/23 12:05:00 EST, Dry Weight Start Date: 09/25/23 Stop Date: 09/19/24 Status: Ordered Quantity: 270.0 Unit: capsule Repeat number: 4 glipiZIDE 10 mg oral tablet 1 tablet = 10 mg, By Mouth, 2 times a day, 0 Refills, Maintenance, 10/02/23 12:34:00 PM EDT, Partial fill upon patient request if the prescription is for a schedule II opioid drug. Start Date: 10/02/23 Status: Ordered Repeat number: 1 isosorbide mononitrate 30 mg oral tablet, extended release 30 mg, 1, tablet, By Mouth, Daily in AM, # 90 tablet, Refills 3, Tot. Refills 3, Maintenance, 09/04/23 2:50:00 PM EST, Route to Pharmacy Electronically, [facility]/pharmacy #[id number], Partial fill upon patient request if the prescription is for a schedule II opioid drug., 168, cm, 09/04/23 14:46:00 EST, Height,114, kg, 05/28/23 12:05:00 EST, Dry Weight Start Date: 09/04/23 Stop Date: 08/29/24 Status: Ordered Quantity: 90.0 Unit: tablet Repeat number: 4 lisinopril 40 mg oral tablet 1 tablet, By Mouth, Daily, # 90 tablet, 3 Refills, Maintenance, 09/05/23 4:20:00 PM EST, [id number], 168, cm, 09/04/23 14:46:00 EST, Height, 114, kg, 05/28/23 12:05:00 EST, Dry Weight Start Date: 09/05/23 Status: Ordered Quantity: 90.0 Unit: tablet Repeat number: 1 methotrexate 2.5 mg oral tablet 2 tablet = 5 mg, By Mouth, Every week, on Monday, # 24 tablet, 3 Refills, Maintenance, 06/22/23 2:58:00 PM EST, Tablet, [facility]/pharmacy #[id number], Partial fill upon patient request if the prescription is for a schedule II opioid drug., 168, cm, 05/28/23 12:05:00 EST, Height, 114, kg, 05/28/23 12:05:00 EST, Dry Weight Start Date: 06/22/23 Stop Date: 05/23/24 Status: Ordered Quantity: 24.0 Unit: tablet Repeat number: 4 Metoprolol Succinate ER 100 mg oral tablet, extended release 1 tablet, By Mouth, Daily, # 90 tablet, 1 Refills, Maintenance, 07/15/23 7:40:00 AM EST, [facility]/pharmacy #[id number], 168, cm, 05/28/23 12:05:00 EST, Height, 114, kg, 05/28/23 12:05:00 EST, Dry Weight Start Date: 07/15/23 Status: Ordered Quantity: 90.0 Unit: tablet Repeat number: 2 Multi Vitamin+ 0 Refills, Maintenance, 11/23/23 8:25:00 AM EDT, Partial fill upon patient request if the prescription is for a schedule II opioid drug. Start Date: 11/23/23 Status: Ordered Repeat number: 1 pioglitazone 45 mg oral tablet 1 tablet, By Mouth, Daily, # 90 tablet, 1 Refills, Maintenance, 08/08/23 6:50:00 AM EST, [facility]/pharmacy#[id number], 168, cm, 05/28/23 12:05:00 EST, Height, 114, kg, 05/28/23 12:05:00 EST, Dry Weight Start Date: 08/08/23 Status: Ordered Quantity: 90.0 Unit: tablet Repeat number: 2 predniSONE 10 mg oral tablet 1 tablet, By Mouth, Every other day, # 15 tablet, 11 Refills, Maintenance, 02/26/24 8:32:00 AM EDT, [facility]/pharmacy #[id number], 167, cm, 02/26/24 8:14:00 EDT, Height, 109.8, kg, 10/02/23 18:52:00 EDT, Dry Weight Start Date: 02/26/24 Stop Date: 02/20/25 Status: Ordered Quantity: 15.0 Unit: tablet Repeat number: 12 SUMAtriptan 100 mg oral tablet 1 tablet, By Mouth, Daily, PRN NEEDED FOR MIGRAINE - MAY REPEAT DOSE ONCE AFTER 2 HOURS, IF NEEDED, # 9 tablet, 3 Refills, Maintenance, 08/01/23 6:41:00 AM EST, [facility]/pharmacy #[id number], 168, cm, 05/28/23 12:05:00 EST, Height, 114, kg, 05/28/23 12:05:00 EST, Dry Weight Start Date: 08/01/23 Status: Ordered Quantity: 9.0 Unit: tablet Repeat number: 4 tamsulosin 0.4 mg oral capsule 1, capsule, By Mouth, Daily at bedtime, # 90 capsule, Refills 1, Tot. Refills 1, Maintenance, 08/08/23 6:50:00 AM EST, Route to Pharmacy Electronically, [facility]/pharmacy #[id number], 168, cm, 05/28/23 12:05:00 EST, Height, 114, kg, 05/28/23 12:05:00 EST, Dry Weight Start Date: 08/08/23 Status: Ordered Quantity: 90.0 Unit: capsule Repeat number: 2 Trelegy Ellipta inhalation powder 1 puffs, Inhalation, Daily, # 3 each, 3 Refills, Maintenance, 07/04/23 7:12:00 PM EST, [id number], Partial fill upon patient request if the prescription is for a schedule II opioid drug., 168, cm, 05/28/23 12:05:00 EST, Height, 114, kg, 05/28/23 12:05:00 EST, Dry Weight Start Date: 07/04/23 Stop Date: 06/28/24 Status: Ordered Quantity: 3.0 Unit: each Repeat number: 4 Trulicity Pen 3 mg/0.5 mL subcutaneous solution 0.5 mL = 3 mg, Subcutaneous Injection, Every week, rotate injection sites, # 2 mL, 3 Refills, Maintenance, 09/04/23 2:47:00 PM EST, Solution, [id number], Partial fill upon patient request if the prescription is for a schedule II opioid drug., 168, cm, 09/04/23 14:46:00 EST, Height, 114, kg, 05/28/23 12:05:00 EST, Dry Weight Start Date: 09/04/23 Status: Ordered Quantity: 2.0 Unit: mL Repeat number: 4 Vitamin D3 oral tablet 1 tablet = 10 mcg, By Mouth, Daily, # 30 tablet, 0 Refills, Maintenance, 11/23/23 8:25:00 AM EDT, Tablet, Partial fill upon patient request if the prescription is for a schedule II opioid drug. Start Date: 11/23/23 Status: Ordered Quantity: 30.0 Unit: tablet Repeat number: 1 vitamin E 400 iu oral capsule 1 capsule = 400 International_Units, By Mouth, every Monday, 0 Refills, Maintenance, 02/15/10 1:01:32 PM EDT Start Date: 02/15/10 Status: Ordered Repeat number: 1 zolpidem 10 mg oral tablet 1 tablet, By Mouth, Daily at bedtime, PRN NEEDED FOR SLEEP, # 28 tablet, 0 Refills, Maintenance,10/10/23 1:47:00 PM EDT, [id number], 167, cm, 10/04/23 7:03:00 EDT, Height, 109.8, kg, 10/02/23 18:52:00 EDT, Dry Weight Start Date: 10/10/23 Stop Date: 11/07/23 Status: Ordered Quantity: 28.0 Unit: tablet Repeat number: 1 Problem List Condition Confirmation Course Effective Dates Status H ealth Status Informant Chronic insomnia Confirmed Active Chronic kidney disease, stage 3a 1 Confirmed Active COPD, group B, by GOLD 2017 classification Confirmed Active Claustrophobia Confirmed Active Dyspnea Confirmed Active High cholesterol Confirmed Active Hypertension Confirmed Active Kidney disease Confirmed Active Low back pain Confirmed Active Prostate cancer Confirmed Active Migraine Confirmed Active Obstructive sleep apnea on CPAP Confirmed Active Obstructive sleep apnea Confirmed Active Pneumothorax-followin g liver bx 2010,resolved Confirmed Active Rib pain Confirmed Active Sarcoidosis of lung Confirmed Active Severe obesity (BMI 35.0-39.9) with comorbidity Confirmed Active Sleep apnea- 7cm---> 12 empirically Confirmed Active Type 2 diabetes mellitus Confirmed Active 1Per chart review meets GFR criteria Social History Social History Type Response Smoking Status Former smoker, quit more than 30 days ago; Type: Cigarettes; Tobacco use times per day: 1.5 pack a day; Number of years: 10; Started at age: 19; Stopped at age: 29; entered on: 01/14/22 Sex Sex Representation Male (finding) Patient Care team information Care Team Personnel Name: Not on Staff, PCP Position: S Physician (General Medicine) Member Role: PCP Care Team Related Persons Name: FERNANDO PATINO Insurance Providers Guarantor name: SILVIA MANCILLA [employer] Plan Information #: 5 Payer: OUT OF STATE PLANS Member Number: [id number] Policy Number: NA Group Number: [id number] Health Plan Information #: 1 Payer: MEDICARE PART B OUTPT Member Number: [id number] Policy Number: NA Group Number: NA Health Plan Information #: 2 Payer: BL[employer] ELECT Member Number: [id number] Policy Number: NA Group Number: [id number] Health Plan Information #: 4 Payer: [employer] ELECT Member Number: [id number] Policy Number: NA Group Number: [id number] Health Plan Information #: 3 Payer: BLUE MEDICARE SUPPL Member Number: [id number] Policy Number: NA Group Number: [id number]
--- OUTSIDE RECORDS SUMMARY | 2024-09-18 16:53 | XMS_ITS | Encounter Summary ---
Author Organization [facility] Address [address] [facility] [address] [place] [address] Phone Care Team Providers Care Senior Property Accountant Name Role Phone Sasha Hawkins MD Primary Care Provider [phone] Encounter Details Date Type Department Care Team (Late st Contact Info) Description 12/10/2020 Orders Only [facility] [address] [facility] [address] [place] [address] Provider, MD Evette [address] [place] [id number] Social History Tobacco Use Types Packs/Day [...] Visit [facility] [address] [place] [phone] Rafa Nunes MD [address] [facility] [address] [place] [phone] documented as of this encounter Procedures Procedure Name Priority Date/Time Associated Diagnosis Comments EXT RESULT ENTRY Routine 12/10/2020 documented in this encounter Results * EXT RESULT ENTRY (12/10/2020) us Historical Provider LAB BLOOD ORDERABLES Ghada l Result documented in this encounter Visit Diagnoses Not on filedocumented in this encounter Care Teams Senior Property Accountant Relationship Specialty Start Date End Date Sasha Hawkins MD [facility] [place] [address] PCP - General Internal Medicine 05/02/23 documented as of this encounter
--- OUTSIDE RECORDS SUMMARY | 2024-09-18 16:53 | XMS_ITS | Clinical Summary ---
Author Organization [facility] Address [address] [facility] [address] [place] [address] Phone Care Team Providers Care Die Repair Machinist Name Role Phone Sasha Hawkins MD Primary Care Provider [phone] Allergies No known active allergies Medications aspirin [...] Office Visit [facility] [address] [address] Rafa Nunes MD Stage 3a [...] Office Visit [facility] [address] [place] [phone] Rafa Nunes MD [address] [address] Health Maintenance Due Date Last [...] patient's age to complete this topic Insurance [facility] MEDICARE MEDICARE [facility] Care Teams Die Repair Machinist Relationship Specialty Start Date End Date O'Cavanaugh, Sasha M, MD [facility] [place] [address] PCP - General Internal Medicine 05/02/23
== END 2024-09-18 15:08 | disposition home or self-care (01) ==
LOC: HO.HSMS 14:39
PROVIDERS: PCP Internal Medicine; Visit Provider Psychiatry & Neurology Neurology
DX: R26.89 Other abnormalities of gait and mobility (principal)
CPT/HCPCS: 99204; G2211

== ENCOUNTER → 2024-09-29 14:38 | Outpatient (BNV) | payer MEDICARE, BC, SELFPAY | PROVIDERS: PCP Internal Medicine; Visit Provider Radiology Diagnostic Radiology | DX: Q27.9 Congenital malformation of peripheral vascular system, unspecified (principal) | CPT/HCPCS: 70551 ==

== ENCOUNTER 2024-09-29 14:48 | Outpatient (REF) | payer MEDICARE, BC, SELFPAY ==
--- NOTE | ~2024-09-29 | MR_ITS ---
EXAMINATION: MR BRAIN WITHOUT CONTRAST CLINICAL INFORMATION: Ataxia. Loss of balance. COMPARISON: None available. TECHNIQUE: MRI of the brain was obtained using routine sequences without contrast. FINDINGS: No restricted diffusion. No acute intracranial hemorrhage, mass effect, midline shift, hydrocephalus or herniation. There is a vascular morphology susceptibility signal in the right cerebellum extending from the extra-axial compartment of the inferior right posterior cranial fossa to the subependymal fourth ventricle. Nonspecific punctate deep periventricular white matter hyperintense T2 FLAIR signal in the right frontal white matter/cingulate gyrus. Flow-void signal within the main cerebral vessels is normal. Sellar/suprasellar region demonstrated no signal abnormality or masses. The hippocampi demonstrated normal signal without gross volume loss. MR/MR head/brain wo con IMPRESSION: No acute brain abnormality. Developmental venous anomaly, right posterior cranial fossa/right cerebellum. Nonspecific hyperintense T2 FLAIR signal, right frontal. Electronically signed by: Alberto Morillo MD 09/30/2024 07:46 AM EDT
== END 2024-09-29 14:49 | disposition home or self-care (01) ==
LOC: HO.MRI 14:48
PROVIDERS: PCP Internal Medicine; Visit Provider Psychiatry & Neurology Neurology
DX: R27.0 Ataxia, unspecified (principal)
CPT/HCPCS: 70551

== ENCOUNTER 2024-12-30 10:18 | Outpatient (AMB) | payer MEDICARE, BC, SELFPAY ==
--- NOTE | 2024-12-30 10:35 | A.OFFPC_ITS ---
Intake Visit Reasons: DM F/U Intake Note: Diabetes follow up Corporate Travel Consultant Required: No Allergies No Known Allergies Allergy (Verified 12/30/24 10:36) Tobacco use date assessed: 12/30/24 Fall risk assessment: No Falls in past year Last assessed Fall Risk: 12/30/24 Dental Screening Dental Screen Date: 12/30/24 Did you have a dental visit in the last 12 months?: No Did you have a dental problem in the last 6 months where you did not have access to dental care?: Yes Was dental information given to patient?: Patient declined HPI HPI Comments History of Present Illness Details 64 year old male with a past medical his tory of sarcoidosis, ÓSCAR, COPD, CAD, prostate cancer and diabetes presenting for follow up CV: Follows with cardiology. History of abnormal nuclear stress-ST changes no meeting classic ischemic criteria but small reversible perfusion defect on nuclear. Performed for intermittent chest pain.Normal echo. Msk: Chronic low back pain. Has tried tramadol and baclofen. On gabapentin- causes drowsiness. Has had PT in past and couldn't tolerate. Xray with mild arthritic changes, disc height loss, right AVN-hip. Present on MRI pelvis since 2019. Diabetes: Controlled. On actos, trulicity and glipizide. Follows with optho. Diabetes is well controlled Pulmonary: Moderate to severe COPD. Sarcoidosis treated with prednisone and MTX with good response. ÓSCAR on CPAP. Prostate Cancer: Follws with Dr Post. On active surveillance. PSA stable. MRI last year., upcoming requesting anxiolyic for very bad claustrophobia. history or urosepsis Insomnia: On zolpidem. Neuro: History of balance issues, now following with neurology. Walks with cane. Had MRI. He reports difficulty with balance. Does not feel dizziness/vertigo. Cant stand on one foot. Cant walk heel toe. Migraines 5-6/month. Last a few hours. Intermittent FMLA Preventive December 27, 2021-colonoscopy @ [facility]. ROS see HPI PHYSICAL EXAM: GENERAL: Alert and oriented x 3. NAD EYES: EOMI. Anicteric. HENT: Moist mucous membranes. No scleral icterus. No cervical lymphadenopathy. LUNGS: Clear to auscultation bilaterally. CARDIOVASCULAR: Regular rate and rhythm. No murmur. No JVD. ABDOMEN: Soft, non-tender +bs EXTREMITIES: No edema. Non-tender. SKIN: No rashes or lesions. Warm. NEUROLOGIC: Unalbe to stand on one foot, cant heel to toe without falling sideways. PSYCHIATRIC: Cooperative. Appropriate mood and affect [facility] Medical History Abnormality of gait due to impairment of balance Insomnia Type 2 diabetes mellitus Sleep apnea Severe obesity Sarcoidosis of lung Rib pain Prostate cancer Pneumothorax, post biopsy Migraine Low back pain Hypertension High cholesterol Dyspnea COPD, severe Claustrophobia Chronic kidney disease, stage 3 Surgical History History of appendectomy History of right knee surgery History of colonoscopy History of prostate biopsy Family History Mother Hypertension FHx: uterine cancer Brother Prostate cancer Father Prostate cancer Social History Household Members: Spouse Housing: House Are you a primary nurse behavioral health care to a significant other at home: No Do you presently have visiting nurse or other home services: No 75 years or older and lives alone: No Alcohol intake: former Comment: 1-2 times per week Patient Tobacco Use Status: Former Tobacco user Cigarette Packs Per Day: 1.5 Years Smoked: 10 e-Cigarette/Vaping Use: Never Used Substance Use Type: Amphetamines service: No Current occupational status: employed Current occupation: [employer] Sexual orientation: Straight/Heterosexual Gender identity: Male Cognitive needs: Yes Hearing needs: Yes Vision needs: Yes (wears glasses) Questionnaire Thrive Questionnaire Date Thrive assessed: 08/19/24 I am a: Patient What is your living situation today?: I have a steady place to live Within the past 12 months, did the food you bought not last and you didn't have the money to get more?: Never true Within the past 12 months, did you worry whether your food would run out before you got money to buy more?: Never true Do you have trouble paying for medicines?: I choose not to answer this question Do you have trouble getting transportation to medical appointments?: No Do you have trouble paying your heating and electricity bill?: No Do you have trouble taking care of your child, family member or friend?: No Do you have trouble with day-to-day activities such as bathing, preparing meals, shopping, managing finances, etc.?: No Are you currently unemployed and looking for a job?: No Are you interested in more education?: No Please select the resources that you would like help with: Paying for medicine Currently or been in a relationship where the following occur: No concerns reported THRIVE Score: 0 AUDIT C Alcohol Use Questionnaire (AUDIT-C) 1. How often do you have a drink containing alcohol?: Never 3. How often do you have six or more drinks on one occasion?: Never Total Score: 0 BARRON-7 AMB Questionnaire BARRON-7 Date BARRON - 7 assessed: 10/19/23 Source: Developed by Drs. Aleksander Marlow, Kiki Cooper, Naeem Anderson and colleagues, with an educational emily from [employer]. Physical exam (Primary Care) Tobacco/Smoking Status: Tobacco use Status Tobacco use date assessed 12/30/24 12/30/24 10:40 Patient Tobacco Use Status Former Tobacco user 12/30/24 11:13 e-Cigarette/Vaping Use Never Used 12/30/24 11:13 Thrive Assessment: Date of Thrive Assessment Date Thrive assessed 08/19/24 12/30/24 10:38 Currently or been in a relationship where the following occur: No concerns reported Results AMB Hemoglobin A1c AMB Hemoglobin A1c 5.1 % Last Edit by Nicole Merino CMA on 12/30/24 10:51 Results Reviewed Results Reviewed: Laboratory Last Values Hgb A1c (Clinic) 5.1 % (4.0-6.0) 12/30/24 10:45 Coding Level of Care Code Est Pt Level 4 (65056) Diagnoses Type 2 diabetes mellitus with stage 3 chronic kidney disease, without long-term current use of insulin, unspecified whether stage 3a or 3b CKD E11.22; N18.30 Chronic kidney disease stage: stage 3 (moderate) Chronic kidney disease stage 3 subtype: unspecified whether 3a or 3b Diabetes mellitus complication detail: with chronic kidney disease Diabetes mellitus complication status: with kidney complications Diabetes mellitus terminal operator insulin use: without alf use Stage 3 chronic kidney disease, unspecified whether stage 3a or 3b CKD N18.30 Chronic kidney disease stage 3 subtype: unspecified whether 3a or 3b Prostate cancer C61 Assessment & Plan Assessment & Plan (1) Type 2 diabetes mellitus: Code(s): E11.9 - Type 2 diabetes mellitus without complications Category: Medical Qualifiers: Chronic kidney disease stage: stage 3 (moderate) Chronic kidney disease stage 3 subtype: unspecified whether 3a or 3b Diabetes mellitus complication detail: with chronic kidney disease Diabetes mellitus complication status: with kidney complications Diabetes mellitus alf insulin use: without terminal operator use Qualified Code(s): E11.22 - Type 2 diabetes mellitus with diabetic chronic kidney disease; N18.30 - Chronic kidney disease, stage 3 unspecified (2) Chronic kidney disease, stage 3: Code(s): N18.30 - Chronic kidney disease, stage 3 unspecified Category: Medical Qualifiers: Chronic kidney disease stage 3 subtype: unspecified whether 3a or 3b Qualified Code(s): N18.30 - Chronic kidney disease, stage 3 unspecified (3) Prostate cancer: Comment: active surveillance. psa has been stable. follow up scheduled Code(s): C61 - Malignant neoplasm of prostate Category: Medical Plan 64 year old for follow up DM is well controlled GERD-esomeprazole bid (was in error written once daily Blood pressure is well controlled on current medications Orders: Orders AMB Hemoglobin A1c Today E11.22 - Type 2 diabetes mellitus with diabetic chronic kidney disease, N18.30 - Chronic kidney disease, stage 3 unspecified Lipid Panel Today E11.22 - Type 2 diabetes mellitus with diabetic chronic kidney disease, I10 - Essential (primary) hypertension, N18.30 - Chronic kidney disease, stage 3 unspecified, R23.3 - Spontaneous ecchymoses Complete Blood Count Auto Diff Today E11.22 - Type 2 diabetes mellitus with diabetic chronic kidney disease, I10 - Essential (primary) hypertension, N18.30 - Chronic kidney disease, stage 3 unspecified, R23.3 - Spontaneous ecchymoses Comprehensive Met. Panel Today E11.22 - Type 2 diabetes mellitus with diabetic chronic kidney disease, I10 - Essential (primary) hypertension, N18.30 - Chronic kidney disease, stage 3 unspecified, R23.3 - Spontaneous ecchymoses Hemoglobin A1c Today E11.22 - Type 2 diabetes mellitus with diabetic chronic kidney disease, I10 - Essential (primary) hypertension, N18.30 - Chronic kidney disease, stage 3 unspecified, R23.3 - Spontaneous ecchymoses Medications: New diazepam bedtime night before MRI exam may pay out of pocket 5 mg PO BEDTIME 1 tab 0RF Changed From esomeprazole magnesium 40 mg PO DAILY 180 caps 3RF To esomeprazole magnesium 40 mg PO BID 180 caps 3RF From lorazepam Take one 0.5mg tablet by mouth 30 minutes prior to MRI, if still anxious may take the second tablet. 0.5 mg PO ONCE 1 day PRN 2 tabs 0RF MRI MDD 1.0 MG R45.89 - Other symptoms and signs involving emotional state To lorazepam orally ; Take 2 tablet by mouth 60 minutes prior to MRI, if still anxious may take one to two tablet 15 minutes prior to MRI may pay out of pocket 4 tabs 0RF MRI 1 day R45.89 - Other symptoms and signs involving emotional state
--- OUTSIDE RECORDS SUMMARY | 2024-12-30 10:57 | XMS_ITS | Clinical Summary ---
Author Organization [facility] Address [address] [facility] [address] [place] [address] Phone Care Team Providers Care Single Spindle Screw Machine Operator Name Role Phone Sasha Hawkins MD Primary Care Provider [phone] Allergies No known active allergies Medications aspirin [...] Hypertensive chronic kidney disease stage 3 07/04 Social History Tobacco Use Types Packs/Day Years [...] Office Visit [facility] [address] [place] [address] Rafa Nunes MD [address] [phone] Health Maintenance Due Date Last Done Comments Colorectal Cancer Screening: Annual FOBT 2007 Colorectal Cancer Screening: Colonoscopy 2007 Colorectal Cancer Screening: Sigmoidoscopy 2007 Pneumococcal Vaccine: 50+ Years (4 of 4 - PCV20 or PCV21) 03/30/2020 03/30/2015, 05/18/2011, 04/20/2006 Diabetes: Hemoglobin A1C 07/27/2023 Diabetes: Ophthalmology Exam 07/27/2023 Diabetes: Pedal Pulse Checked 07/27/2023 Diabetes: Sensory Foot Exam 07/27/2023 Diabetes: Visual Foot Exam 07/27/2023 Influenza Vaccine (Season Ended) 2025 Pneumococcal Vaccine: Peds ( 0 to 5 Years) and At-Risk Patients (6 to 49 Years) Discontinued 03/30/2015, 05/18/2011, 04/20/2006 Hepatitis B Vaccine Aged Out No longe r eligible based on patient's age to complete this topic Insurance [facility] Medicare Medicare [facility] Care Teams Single Spindle Screw Machine Operator Relationship Specialty Start Date End Date Sasha Hawkins MD [address] [place] [id number] PCP - General Internal Medicine 05/02/23
== END 2024-12-30 11:13 | disposition home or self-care (01) ==
LOC: HO.HMCFM 10:19
PROVIDERS: PCP Internal Medicine; Visit Provider Internal Medicine
DX: E11.22 Type 2 diabetes mellitus with diabetic chronic kidney disease (principal); N18.30 Chronic kidney disease, stage 3 unspecified; C61 Malignant neoplasm of prostate

== ENCOUNTER → 2024-12-30 10:18 | Outpatient (BNVA) | payer MEDICARE, BC, SELFPAY | PROVIDERS: PCP Internal Medicine; Visit Provider Internal Medicine | DX: E11.22 Type 2 diabetes mellitus with diabetic chronic kidney disease (principal); N18.30 Chronic kidney disease, stage 3 unspecified; C61 Malignant neoplasm of prostate; K21.9 Gastro-esophageal reflux disease without esophagitis; G47.33 Obstructive sleep apnea (adult) (pediatric); G47.00 Insomnia, unspecified; Z79.899 Other long term (current) drug therapy; Z99.89 Dependence on other enabling machines and devices | CPT/HCPCS: 83036; 99212 ==

== ENCOUNTER 2025-01-22 12:44 | Outpatient (AMB) | payer MEDICARE, BC, SELFPAY ==
--- NOTE | 2025-01-22 12:57 | MHC.OFFVIS ---
Vital Signs 01/22/25 12:58 Height 5 ft 6.5 in Weight 242 lb 2 oz BMI 38.5 BP 140/74 H Blood Pressure Location Lt brachial Position Sitting Pulse 78 Pulse Source Pulse Oximeter Pulse Oximetry (%) 97 Oxygen Delivery Method Room Air Intake Visit Reasons: 4 mnts f/u per MD Intake Note: Patient presents follow up Gait. Labs in chart. patient states no chances. Accompanied by: Self / Same As Patient Allergies No Known Allergies Allergy (Verified 01/22/25 13:04) HPI Comments Details: 64y/o male comes for evaluation of gait and balance issues. ÓSCAR Compliance Report Requested from [facility] MRI 08/2024 reviewed with patient, no acute brain abnormality. Nonspecific hypertintense T2 FLAIR signal, right frontal. Developmental venous anomaly. R. posterior cranial fossa/right cerebellum. He goes to bed at 8pm falls asleep at 10pm and wakes up at 7am. He has multiple arousals at night and takes ambien to help sleep through the ngiht. He usually is up 5:00am on Wednesdays and Fridays for PT. [facility] referred him to PT. He is walks, bikes uses a canes sometimes. He uses two inhalers for COPD. Denies RLS, morning headaches, and bruxism. He has a h/o lumbar spondylosis, diabetes, prostrate ca and for past 2 months he feels like he is off balance with his gait. He has chronic back pain. He denies radicular pain. He denies double vision. He had an episode of dizziness when he took Ellipta/Trelegy -2 weeks ago. Denies vertigo and balance difficulties today. He denies neck pain.He has numbness and tingling in his feet ocassionally. No h/o heavy alcohol use. He used to work at the post [employer], he drove a fork lift. STM word recall, and word retrieval, orientation is poor, every day is the same since residential so he loses track of his days. He has hearing aids and does not wear them. Patient education provided re: memory and hearing deficits/ sensory ataxia which leads to balance difficulties. [facility] Medical History Abnormality of gait due to impairment of balance Insomnia Type 2 diabetes mellitus Sleep apnea Severe obesity Sarcoidosis of lung Rib pain Prostate cancer Pneumothorax, post biopsy Migraine Low back pain Hypertension High cholesterol Dyspnea COPD, severe Claustrophobia Chronic kidney disease, stage 3 Surgical History History of appendectomy History of right knee surgery History of colonoscopy History of prostate biopsy Family History Mother Hypertension FHx: uterine cancer Brother Prostate cancer Father Prostate cancer Social History Household Members: Spouse Housing: House Are you a primary children's zoo caretaker to a significant other at home: No Do you presently have visiting nurse or other home services: No 75 years or older and lives alone: No Alcohol intake: former Comment: 1-2 times per week Patient Tobacco Use Status: Former Tobacco user Cigarette Packs Per Day: 1.5 Years Smoked: 10 e-Cigarette/Vaping Use: Never Used Substance Use Type: Amphetamines service: No Current occupational status: employed Current occupation: [employer] Sexual orientation: Straight/Heterosexual Gender identity: Male Cognitive needs: Yes Hearing needs: Yes Vision needs: Yes (wears glasses) Physical Exam Vital Signs: Last Vital Signs Pulse 78 01/22/25 12:58 BP 140/74 H 01/22/25 12:58 Pulse Ox 97 01/22/25 12:58 Oxygen Delivery Method Room Air 01/22/25 12:58 BMI result Body Mass Index 38.5 Const General: cooperative, healthy appearing, comfortable and no acute distress Nutritional Appearance: average body habitus Orientation/consciousness: patient oriented x3 Eyes Pupils: Equal, round and reactive pupils present Neuro Other: normal gait- difficulty with tandem walk, sways to the side and off balance General: patient oriented x3, tone normal and moves all extremities Cranial nerves: Yes Facial sensation intact/muscles of mastication intact, Yes Equal, round and reactive pupils present, Yes Bilaterally intact EOM present, Yes Nystagmus not present, Yes Normal facial strength present, Yes Midline tongue present, Yes Symmetric palate elevation present and Yes Ability to bilaterally elevate shoulders present Cognition (Neuro): normal cognition Motor exam (neuro): 5/5 motor strength present throughout and Normal motor muscle tone present throughout Deep tendon reflexes (DTR's): Right triceps reflex intensity grade: 1+, Left triceps reflex intensity grade: 1+, Rt Biceps (C5, C6): 1+, Left biceps reflex intensity grade: 1+, Right brachioradialis reflex intensity grade: 1+, Left brachioradialis reflex intensity grade: 1+, Right patellar reflex intensity grade: 1+ and Left patellar reflex intensity grade: 1+ Coordination: [id number] test normal Psych Appearance: well kempt Thought process: Normal thought process present Thought content: Normal thought content present Results Reviewed Results Reviewed: 08/2024 MRI reviewed with patient today IMPRESSION: No acute brain abnormality. Developmental venous anomaly, right posterior cranial fossa/right cerebellum. Nonspecific hyperintense T2 FLAIR signal, right frontal. Assessment & Plan Assessment & Plan (1) Abnormality of gait due to impairment of balance: Comment: ? sensory ataxia, ? lumbar spondylosis Code(s): R26.89 - Other abnormalities of gait and mobility Category: Medical (2) Ataxia: Code(s): R27.0 - Ataxia, unspecified Category: Medical (3) Developmental venous anomaly: Code(s): Q28.3 - Other malformations of cerebral vessels Category: Medical Plan MRI reviewed with patient DVM benign most likely. Sensory Ataxia? possible as he doesn't like wearing his hearing aides and doesn't hear well. Gait and balance difficulties continue PT, cant complete tandem walking. Labs review with patient B12 and folate normal Patient Instructions: Sleep Hygiene provided: set a scheduled bedtime and wake time to help regulate the circadian rhythm and balance the release of pituitary hormones. Sleep in a dark room, temperatures below 68 degrees, and no devices n bed. Limit caffeinated products 6 hours prior to bed, and limit fluids 2-4 hours prior to bed. Gentle night yoga, diffusing essential oils, and playing soft music can be relaxing. Continue Cpap use wash mask, hoses and change filters, fill reservoir with water daily. Continue PT as directed by clay dry press operator. Start wearing hearing aids, daily. Coding Level of Care Code Est Pt Level 4 (51848) Diagnoses Abnormality of gait due to impairment of balance R26.89 Ataxia R27.0 Developmental venous anomaly Q28.3 Time Spent (min) 35 Comment gait and balance, request ÓSCAR compliance from [facility].
[2025-01-22 12:58] VITALS: BP 140/74; PULSE 78; O2SAT 97; BMI 38.5
--- OUTSIDE RECORDS SUMMARY | 2025-01-22 13:07 | XMS_ITS | Clinical Summary ---
Author Organization [facility] Address [address] [facility] [address] [place] [address] Phone Care Team Providers Care Mail Processing Machine Operator Name Role Phone Sasha Hawkins MD Primary Care Provider [phone] Allergies No known active allergies Medications aspirin [...] Office Visit [facility] [address] [place] [address] Rafa Nunes MD [address] [phone] Health Maintenance Due Date Last Done Comments [...] Visual Foot Exam 07/27/2023 Influenza Vaccine (#1) 2025 Pneumococcal Vaccine: Peds ( 0 to 5 Years) and At-Risk Patients (6 to 49 Years) Discontinued 03/30/2015, 05/18/2011, 04/20/2006 Hepatitis B Vaccine Aged Out No longe r eligible based on patient's age to complete this topic Insurance [facility] Medicare Medicare [facility] Care Teams Mail Processing Machine Operator Relationship Specialty Start Date End Date Sasha Hawkins MD [address] [place] [id number] PCP - General Internal Medicine 05/02/23
== END 2025-01-22 14:04 | disposition home or self-care (01) ==
LOC: HO.HSMS 12:45
PROVIDERS: PCP Internal Medicine; Visit Provider Physician Assistant Medical
DX: R26.89 Other abnormalities of gait and mobility (principal); Q28.3 Other malformations of cerebral vessels; R27.0 Ataxia, unspecified
CPT/HCPCS: 99214

== ENCOUNTER → 2025-01-22 12:44 | Outpatient (BNVA) | payer MEDICARE, BC, SELFPAY | PROVIDERS: PCP Internal Medicine; Visit Provider Physician Assistant Medical | DX: R26.89 Other abnormalities of gait and mobility (principal); R27.0 Ataxia, unspecified; Q28.3 Other malformations of cerebral vessels | CPT/HCPCS: 99212 ==

== ENCOUNTER 2025-01-27 10:38 | Outpatient (AMB) | payer MEDICARE, BC, SELFPAY ==
--- NOTE | 2025-01-27 10:42 | MHC.PC.OV ---
Vital Signs 01/27/25 10:45 Height 5 ft 6.5 in Weight 241 lb 6 oz BMI 38.4 BP 134/68 Blood Pressure Location Lt brachial Respiration 14 Pulse 67 Pulse Source Pulse Oximeter Temp 98 F Temp Source Oral Pulse Oximetry (%) 96 Oxygen Delivery Method Room Air Intake Visit Reasons: [facility] cole, cat bite Intake Note: ER follow up. Cat bite on right hand. Book Cleaner Required: No Allergies No Known Allergies Allergy (Verified 01/27/25 10:44) Tobacco use date assessed: 01/27/25 Dental Screening Dental Screen Date: 12/30/24 HPI HPI Comments History of Present Illness Details 64 year old male with a past medical history of sarcoidosis, ÓSCAR, COPD, CAD, prostate cancer and diabetes presenting for hospital follow up He was hospitalized 01/01-01/03/25 at [facility] after failing outpatient therapy for infection due to cat bite. Housecat. Received IV abx and discharged home on continuing course of antibiotics. The infection has clearing. About one week ago was in the garage and felt a pinch on the right anterior leg and seemed to swat something away.There is a tiny bite, lesion there. The surrounding area is normal without erythema or warmth. CV: Follows with cardiology. History of abnormal nuclear stress-ST changes no meeting classic ischemic criteria but small reversible perfusion defect on nuclear. Performed for intermittent chest pain.Normal echo. Msk: Chronic low back pain. Has tried tramadol and baclofen. On gabapentin-causes drowsiness. Has had PT in past and couldn't tolerate. Xray with mild arthritic changes, disc height loss, right AVN-hip. Present on MRI pelvis since 2019. Diabetes: Controlled. On actos, trulicity and glipizide. Follows with optho. Diabetes is well controlled. Seen in December for follow up Pulmonary: Moderate to severe COPD. Sarcoidosis treated with prednisone and MTX with good response. ÓSCAR on CPAP. Prostate Cancer: Follws with Dr Post. On active surveillance. PSA stable. MRI last year., upcoming requesting anxiolyic for very bad claustrophobia. history or urosepsis Insomnia: On zolpidem. Neuro: History of balance issues, now following with neurology. Walks with cane. Had MRI. He reports difficulty with balance. Does not feel dizziness/vertigo. Cant stand on one foot. Cant walk heel toe. Migraines 5-6/month. Last a few hours. Intermittent FMLA Preventive December 27, 2021-colonoscopy @ [facility]. ROS see HPI PHYSICAL EXAM: GENERAL: Alert and oriented x 3. NAD EYES: EOMI. Anicteric. HENT: Moist mucous membranes. No scleral icterus. No cervical lymphadenopathy. LUNGS: Clear to auscultation bilaterally. CARDIOVASCULAR: Regular rate and rhythm. No murmur. No JVD. ABDOMEN: Soft, non-tender +bs EXTREMITIES: No edema. Non-tender. SKIN: No rashes or lesions. Warm. NEUROLOGIC: Unalbe to stand on one foot, cant heel to toe without falling sideways. PSYCHIATRIC: Cooperative. Appropriate mood and affect [facility] Medical History Abnormality of gait due to impairment of balance Insomnia Type 2 diabetes mellitus Sleep apnea Severe obesity Sarcoidosis of lung Rib pain Prostate cancer Pneumothorax, post biopsy Migraine Low back pain Hypertension High cholesterol Dyspnea COPD, severe Claustrophobia Chronic kidney disease, stage 3 Surgical History History of appendectomy History of right knee surgery History of colonoscopy History of prostate biopsy Family History Mother Hypertension FHx: uterine cancer Brother Prostate cancer Father Prostate cancer Social History Household Members: Spouse Housing: House Are you a primary patient care representative to a significant other at home: No Do you presently have visiting nurse or other home services: No 75 years or older and lives alone: No Alcohol intake: former Comment: 1-2 times per week Patient Tobacco Use Status: Former Tobacco user Cigarette Packs Per Day: 1.5 Years Smoked: 10 Packs Per Year: 15 e-Cigarette/Vaping Use: Never Used Substance Use Type: Amphetamines service: No Current occupational status: employed Current occupation: [employer] Sexual orientation: Straight/Heterosexual Gender identity: Male Cognitive needs: Yes Hearing needs: Yes Vision needs: Yes (wears glasses) Questionnaire Thrive Questionnaire Date Thrive assessed: 08/19/24 I am a: Patient What is your living situation today?: I have a steady place to live Within the past 12 months, did the food you bought not last and you didn't have the money to get more?: Never true Within the past 12 months, did you worry whether your food would run out before you got money to buy more?: Never true Do you have trouble paying for medicines?: I choose not to answer this question Do you have trouble getting transportation to medical appointments?: No Do you have trouble paying your heating and electricity bill?: No Do you have trouble taking care of your child, family member or friend?: No Do you have trouble with day-to-day activities such as bathing, preparing meals, shopping, managing finances, etc.?: No Are you currently unemployed and looking for a job?: No Are you interested in more education?: No Please select the resources that you would like help with: Paying for medicine Currently or been in a relationship where the following occur: No concerns reported THRIVE Score: 0 BARRON-7 AMB Questionnaire BARRON-7 Date BARRON - 7 assessed: 10/19/23 Source: Developed by Drs. Aleksander Marlow, Kiki Cooper, Naeem Anderson and colleagues, with an educational emily from [employer]. Physical exam (Primary Care) Vital Signs: Last Vital Signs Temp 98 F 01/27/25 10:45 Pulse 67 01/27/25 10:45 Resp 14 01/27/25 10:45 BP 134/68 01/27/25 10:45 Pulse Ox 96 01/27/25 10:45 Oxygen Delivery Method Room Air 01/27/25 10:45 BMI result Body Mass Index 38.4 Tobacco/Smoking Status: Tobacco use Status Tobacco use date assessed 01/27/25 01/27/25 10:50 Patient Tobacco Use Status Former Tobacco user 01/27/25 10:43 e-Cigarette/Vaping Use Never Used 01/27/25 10:43 Thrive Assessment: Date of Thrive Assessment Date Thrive assessed 08/19/24 01/27/25 10:43 Currently or been in a relationship where the following occur: No concerns reported Coding Level of Care Code Est Pt Level 4 (55323) Complex EM visit Add On G2211 Diagnoses Hospital discharge follow-up Z09 Type 2 diabetes mellitus with stage 3 chronic kidney disease, without long-term current use of insulin, unspecified whether stage 3a or 3b CKD E11.22; N18.30 Diabetes mellitus dedicated intermodal truck driver insulin use: without dedicated intermodal truck driver use Diabetes mellitus complication status: with kidney complications Diabetes mellitus complication detail: with chronic kidney disease Chronic kidney disease stage: stage 3 (moderate) Chronic kidney disease stage 3 subtype: unspecified whether 3a or 3b Cat bite, sequela W55.01XS Encounter type: sequela Assessment & Plan Assessment & Plan (1) Hospital discharge follow-up: Code(s): Z09 - Encounter for follow-up examination after completed treatment for conditions other than malignant neoplasm (2) Type 2 diabetes mellitus: Code(s): E11.9 - Type 2 diabetes mellitus without complications Category: Medical Qualifiers: Diabetes mellitus [facility] insulin use: without dedicated intermodal truck driver use Diabetes mellitus complication status: with kidney complications Diabetes mellitus complication detail: with chronic kidney disease Chronic kidney disease stage: stage 3 (moderate) Chronic kidney disease stage 3 subtype: unspecified whether 3a or 3b Qualified Code(s): E11.22 - Type 2 diabetes mellitus with diabetic chronic kidney disease; N18.30 - Chronic kidney disease, stage 3 unspecified (3) Cat bite: Code(s): W55.01XA - Bitten by cat, initial encounter Qualifiers: Encounter type: sequela Qualified Code(s): W55.01XS - Bitten by cat, sequela Plan Hospital discharge follow up Hospitalization reviewed-infectious/cellulitis resolved with inpatient abx, followed by outpatient course Small left jorge bite/scratch. No surrounding issue. In abundance of caution check lyme with next diabetic labs DM has been well controlled on current medications Orders: Orders Lyme IgG/IgM w/reflex to WB 4 Weeks L98.9 - Disorder of the skin and subcutaneous tissue, unspecified
[2025-01-27 10:45] VITALS: BP 134/68; PULSE 67; RESP 14; TEMP 36.6; O2SAT 96; BMI 38.4
--- OUTSIDE RECORDS SUMMARY | 2025-01-27 11:52 | XMS_ITS | Clinical Summary ---
Author Organization [facility] Address [address] [facility] [address] [place] [address] Phone Care Team Providers Care Mountain Services Manager Name Role Phone Sasha Hawkins MD Primary Care Provider [phone] Allergies No known active allergies Medications aspirin [...] Office Visit [facility] [address] [place] [address] Rafa Nunes MD [address] [phone] Health Maintenance Due Date Last Done Comments [...] patient's age to complete this topic Insurance [facility] Medicare Medicare [facility] Care Teams Mountain Services Manager Relationship Specialty Start Date End Date Sasha Hawkins MD [address] [place] [id number] PCP - General Internal Medicine 05/02/23
== END 2025-01-27 11:17 | disposition home or self-care (01) ==
LOC: HO.HMCFM 10:39
PROVIDERS: PCP Internal Medicine; Visit Provider Internal Medicine
DX: Z09 Encounter for follow-up examination after completed treatment for conditions other than malignant neoplasm (principal); E11.22 Type 2 diabetes mellitus with diabetic chronic kidney disease; N18.30 Chronic kidney disease, stage 3 unspecified; W55.01XS Bitten by cat, sequela

== ENCOUNTER → 2025-01-27 10:38 | Outpatient (BNVA) | payer MEDICARE, BC, SELFPAY | PROVIDERS: PCP Internal Medicine; Visit Provider Internal Medicine | DX: Z09 Encounter for follow-up examination after completed treatment for conditions other than malignant neoplasm (principal); S81.851D Open bite, right lower leg, subsequent encounter; W55.01XD Bitten by cat, subsequent encounter; E11.22 Type 2 diabetes mellitus with diabetic chronic kidney disease; N18.30 Chronic kidney disease, stage 3 unspecified; J44.9 Chronic obstructive pulmonary disease, unspecified; G47.00 Insomnia, unspecified; G47.33 Obstructive sleep apnea (adult) (pediatric); G89.29 Other chronic pain; M54.50 Low back pain, unspecified; C61 Malignant neoplasm of prostate; Z99.89 Dependence on other enabling machines and devices | CPT/HCPCS: 99212 ==

== ENCOUNTER 2025-04-28 08:23 | Outpatient (REF) | payer MEDICARE, BC, SELFPAY ==
[2025-04-28 11:31] LABS: MANUAL DIFF FLAG NO
[2025-04-28 11:56] LABS: Hematocrit 39.2 % (42.0-52.0); Hemoglobin 12.2 g/dl (14.0-18.0); Imm Gran Abs Auto 0.02 X10*3/uL (0.00-0.03); Imm Gran Pct Auto 0.4 % (0.0-0.4); Lymphocytes Absolute Auto 0.6 X10*3/uL (1.2-4.9); Mean Corpuscular HGB Conc 31.1 g/dl (31.0-36.0); Mean Corpuscular Hemoglobin 28.7 pg (27.0-33.0); Mean Corpuscular Volume 92.2 fL (80.0-98.0); NRBC Abs Auto 0.000 X10*3/uL (0.0-0.012); NRBC Pct Auto 0.0 /100WBC (0.0-0.2); Platelet Count 145 X10*3/uL (160-400); Red Blood Count 4.25 X10*6/uL (4.60-5.80); White Blood Count 5.6 X10*3/uL (4.8-10.8)
[2025-04-28 12:14] LABS: Alanine Aminotransferase 35 U/L (0-40); Albumin Level 3.7 g/dL (3.5-5.0); Alkaline Phosphatase 86 U/L (39-117); Anion Gap 9 (12-20); Aspartate Amino Transferase 33 U/L (5-37); Blood Urea Nitrogen 15 mg/dL (9-16); Calcium 9.4 mg/dL (8.4-10.2); Carbon Dioxide 29 mmol/L (22-29); Chloride 111 mmol/L (96-108); Cholesterol 114 mg/dL (<200); Estimated Glomerular Filt Rate 50; HDL Cholesterol 44 mg/dL (>40); Potassium 4.4 mmol/L (3.3-5.1); Sodium 145 mmol/L (135-145); Total Protein 5.9 g/dL (6.5-8.0); Triglycerides 92 mg/dL (<150)
[2025-04-29 09:19] LABS: Lyme Abs Screen <0.90 index
== END 2025-04-28 08:24 | disposition home or self-care (01) ==
LOC: HO.WFDLDS 08:23
PROVIDERS: Visit Provider Internal Medicine
DX: Z01.84 Encounter for antibody response examination (principal); I12.9 Hypertensive chronic kidney disease with stage 1 through stage 4 chronic kidney disease, or unspecified chronic kidney disease; E11.22 Type 2 diabetes mellitus with diabetic chronic kidney disease; N18.30 Chronic kidney disease, stage 3 unspecified; R23.3 Spontaneous ecchymoses; L98.9 Disorder of the skin and subcutaneous tissue, unspecified
CPT/HCPCS: 36415; 80053; 80061; 83036; 85025; 86617; 86618

== ENCOUNTER 2025-05-05 10:21 | Outpatient (AMB) | payer MEDICARE, BC, SELFPAY ==
--- NOTE | 2025-05-05 10:23 | MHC.PC.OV ---
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 Allergies No Known Allergies Allergy (Verified 05/05/25 10:24) Medication List - Last Reconciled 05/05/25 by Sasha Hawikns MD aspirin 81 mg PO DAILY atorvastatin 80 mg PO DAILY betamethasone dipropionate 0.05% 1 appl topical BID PRN 90 days diazepam 5 mg PO BEDTIME PRN esomeprazole magnesium 40 mg PO DAILY sywhghvrgcz-asozzrcky-svtckaaa 100-62.5-25 mcg (Trelegy Ellipta) 1 ea inhalation DAILY folic acid 1 mg PO DAILY 90 days gabapentin 300 mg PO TID 90 days glipizide ER 10 mg PO DAILY 90 days isosorbide mononitrate ER 30 mg PO DAILY 90 days lisinopril 40 mg PO DAILY lorazepam orally ; Take 2 tablet by mouth 60 minutes prior to MRI, if still anxious may take one to two tablet 15 minutes prior to MRI may pay out of pocket 1 day methotrexate sodium 5 mg (2 x 2.5 mg) PO QWEEK metoprolol succinate ER 100 mg PO DAILY OneTouch Ultra Test (blood sugar diagnostic) check BG once daily NS pioglitazone 45 mg PO DAILY 90 days prednisone 10 mg PO Q OTHER DAY sumatriptan succinate 100 mg PO DAILY PRN 90 days tamsulosin 0.4 mg PO DAILY 90 days Trulicity (dulaglutide) 3 mg (0.5 mL) subcut QWEEK 12 weeks NS zolpidem 10 mg PO BEDTIME 90 days Tobacco use date assessed: 05/05/25 Dental Screening Dental Screen Date: 12/30/24 HPI HPI Comments History of Present Illness Details 65 year old male with a past medical history of sarcoidosis, ÓSCAR, COPD, CAD, prostate cancer and diabetes presenting for follow up CV: Follows with cardiology. Visit next week. History of abnormal nuclear stress-ST changes no meeting classic ischemic criteria but small reversible perfusion defect on nuclear. Performed for intermittent chest pain.Normal echo. Msk: Chronic low back pain. Has tried tramadol and baclofen. On gabapentin-causes drowsiness. Has had PT in past and couldn't tolerate. Xray with mild arthritic changes, disc height loss, right AVN-hip. Present on MRI pelvis since 2019. Diabetes: Controlled. On actos, trulicity and glipizide. A1C 5.4%. Follows with optho. Seen in December for follow up Pulmonary: Moderate to severe COPD. Sarcoidosis treated with prednisone and MTX with good response. ÓSCAR on CPAP. Prostate Cancer: Czaq9el with Dr Post. On active surveillance. PSA stable. Insomnia: On zolpidem. Neuro: History of balance issues, now following with neurology. Walks with cane. Had MRI. He reports difficulty with balance. Does not feel dizziness/vertigo. Cant stand on one foot. Cant walk heel toe. Migraines 5-6/month. Last a few hours. Intermittent FMLA Preventive December 27, 2021-colonoscopy @ [facility]. ROS see HPI PHYSICAL EXAM: GENERAL: Alert and oriented x 3. NAD EYES: EOMI. Anicteric. HENT: Moist mucous membranes. No scleral icterus. No cervical lymphadenopathy. LUNGS: Clear to auscultation bilaterally. CARDIOVASCULAR: Regular rate and rhythm. No murmur. No JVD. ABDOMEN: Soft, non-tender +bs EXTREMITIES: No edema. Non-tender. SKIN: No rashes or lesions. Warm. NEUROLOGIC: Unalbe to stand on one foot, cant heel to toe without falling sideways. PSYCHIATRIC: Cooperative. Appropriate mood and affect [facility] Medical History Abnormality of gait due to impairment of balance Insomnia Type 2 diabetes mellitus Sleep apnea Severe obesity Sarcoidosis of lung Rib pain Prostate cancer Pneumothorax, post biopsy Migraine Low back pain Hypertension High cholesterol Dyspnea COPD, severe Claustrophobia Chronic kidney disease, stage 3 Surgical History History of appendectomy History of right knee surgery History of colonoscopy History of prostate biopsy Family History Mother Hypertension FHx: uterine cancer Brother Prostate cancer Father Prostate cancer Social History Household Members: Spouse Housing: House Are you a primary healthcare market consultant to a significant other at home: No Do you presently have visiting nurse or other home services: No 75 years or older and lives alone: No Alcohol intake: former Comment: 1-2 times per week Patient Tobacco Use Status: Former Tobacco user Cigarette Packs Per Day: 1.5 Years Smoked: 10 e-Cigarette/Vaping Use: Never Used Substance Use Type: Amphetamines service: No Current occupational status: employed Current occupation: [employer] Sexual orientation: Straight/Heterosexual Gender identity: Male Cognitive needs: Yes Hearing needs: Yes Vision needs: Yes (wears glasses) Questionnaire Thrive Questionnaire Date Thrive assessed: 08/19/24 I am a: Patient What is your living situation today?: I have a steady place to live Within the past 12 months, did the food you bought not last and you didn't have the money to get more?: Never true Within the past 12 months, did you worry whether your food would run out before you got money to buy more?: Never true Do you have trouble paying for medicines?: I choose not to answer this question Do you have trouble getting transportation to medical appointments?: No Do you have trouble paying your heating and electricity bill?: No Do you have trouble taking care of your child, family member or friend?: No Do you have trouble with day-to-day activities such as bathing, preparing meals, shopping, managing finances, etc.?: No Are you currently unemployed and looking for a job?: No Are you interested in more education?: No Please select the resources that you would like help with: Paying for medicine Currently or been in a relationship where the following occur: No concerns reported THRIVE Score: 0 BARRON-7 AMB Questionnaire BARRON-7 Date BARRON - 7 assessed: 10/19/23 Source: Developed by Drs. Aleksander Marlow, Kiki Cooper, Naeem Anderson and colleagues, with an educational emily from [employer]. Physical exam (Primary Care) Vital Signs: Last Vital Signs Pulse 68 05/05/25 10:24 Resp 14 05/05/25 10:24 BP 146/64 H 05/05/25 10:24 Pulse Ox 98 05/05/25 10:24 Oxygen Delivery Method Room Air 05/05/25 10:24 BMI result Body Mass Index 37.5 Tobacco/Smoking Status: Tobacco use Status Tobacco use date assessed 05/05/25 05/05/25 10:32 Patient Tobacco Use Status Former Tobacco user 05/05/25 10:32 e-Cigarette/Vaping Use Never Used 05/05/25 10:32 Thrive Assessment: Date of Thrive Assessment Date Thrive assessed 08/19/24 05/05/25 10:32 Currently or been in a relationship where the following occur: No concerns reported Coding Level of Care Code Est Pt Level 4 (13174) Diagnoses Type 2 diabetes mellitus with stage 3 chronic kidney disease, without long-term current use of insulin, unspecified whether stage 3a or 3b CKD E11.22; N18.30 Diabetes mellitus [facility] insulin use: without supervisor intermediates use Diabetes mellitus complication status: with kidney complications Diabetes mellitus complication detail: with chronic kidney disease Chronic kidney disease stage: stage 3 (moderate) Chronic kidney disease stage 3 subtype: unspecified whether 3a or 3b Primary hypertension I10 Hypertension type: primary hypertension Stage 3 chronic kidney disease, unspecified whether stage 3a or 3b CKD N18.30 Chronic kidney disease stage 3 subtype: unspecified whether 3a or 3b Prostate cancer C61 Assessment & Plan Assessment & Plan (1) Type 2 diabetes mellitus: Code(s): E11.9 - Type 2 diabetes mellitus without complications Category: Medical Qualifiers: Diabetes mellitus [facility] insulin use: without [facility] use Diabetes mellitus complication status: with kidney complications Diabetes mellitus complication detail: with chronic kidney disease Chronic kidney disease stage: stage 3 (moderate) Chronic kidney disease stage 3 subtype: unspecified whether 3a or 3b Qualified Code(s): E11.22 - Type 2 diabetes mellitus with diabetic chronic kidney disease; N18.30 - Chronic kidney disease, stage 3 unspecified (2) Hypertension: Code(s): I10 - Essential (primary) hypertension Category: Medical Qualifiers: Hypertension type: primary hypertension Qualified Code(s): I10 - Essential (primary) hypertension (3) Chronic kidney disease, stage 3: Code(s): N18.30 - Chronic kidney disease, stage 3 unspecified Category: Medical Qualifiers: Chronic kidney disease stage 3 subtype: unspecified whether 3a or 3b Qualified Code(s): N18.30 - Chronic kidney disease, stage 3 unspecified (4) Prostate cancer: Comment: active surveillance. psa has been stable. follow up scheduled Code(s): C61 - Malignant neoplasm of prostate Category: Medical Plan 65 year old male presenting for follow up diabetes is well controlled on current medications. No hypoglycemia. Test strips ordered. Continue current medications. Efforts toward weight loss CV-blood pressure is well controlled. continue cardiology follow up. Upcoming visit Prostate cancer-on active surveillance Orders: Orders AMB Hemoglobin A1c Today E11.22 - Type 2 diabetes mellitus with diabetic chronic kidney disease, N18.30 - Chronic kidney disease, stage 3 unspecified Medications: New Proton Digital SystemsTouch Ultra Test (blood sugar diagnostic) check BG once daily 100 ea 3RF NS E11.22 - Type 2 diabetes mellitus with diabetic chronic kidney disease, N18.30 - Chronic kidney disease, stage 3 unspecified
[2025-05-05 10:24] VITALS: BP 146/64; PULSE 68; RESP 14; O2SAT 98; BMI 37.5
== END 2025-05-05 11:10 | disposition home or self-care (01) ==
LOC: HO.HMCFM 10:22
PROVIDERS: PCP Internal Medicine; Visit Provider Internal Medicine
DX: E11.22 Type 2 diabetes mellitus with diabetic chronic kidney disease (principal); N18.30 Chronic kidney disease, stage 3 unspecified; I10 Essential (primary) hypertension; C61 Malignant neoplasm of prostate

== ENCOUNTER → 2025-05-05 10:21 | Outpatient (BNVA) | payer MEDICARE, BC, SELFPAY | PROVIDERS: PCP Internal Medicine; Visit Provider Internal Medicine | DX: E11.22 Type 2 diabetes mellitus with diabetic chronic kidney disease (principal); I12.9 Hypertensive chronic kidney disease with stage 1 through stage 4 chronic kidney disease, or unspecified chronic kidney disease; N18.30 Chronic kidney disease, stage 3 unspecified; C61 Malignant neoplasm of prostate; J44.9 Chronic obstructive pulmonary disease, unspecified; G47.00 Insomnia, unspecified; Z79.84 Long term (current) use of oral hypoglycemic drugs; Z79.899 Other long term (current) drug therapy | CPT/HCPCS: 99212 ==